=== PATIENT | male | born 1955 | race Caucasian/White ===

== ENCOUNTER 2021-10-30 13:48 | Outpatient (CLI) | payer MEDICARE, BC, SELFPAY ==
--- NOTE | 2021-10-30 14:30 | MR_ITS ---
[address] [address] Phone:?[phone] Fax:?[phone] Referring Physician Information: Devin Garsia [address] [facility] [address] Phone:?[phone] Fax:?[phone] Patient:Bill Alvarez D.O.B:?1955 Sex:?Male Phone:?[phone] [facility] MRN:?[id number] Exam Date:?10/30/2021 ? EXAM: MRI of the LEFT KNEE, without contrast CLINICAL HISTORY: Left knee pain. Evaluate for osteoarthritis, meniscal injury, stress fracture, and internal derangement. Left knee osteoarthritis. COMPARISONS: None available. TECHNICAL: MR sequences of the left knee: sagittals: PD, PDFS coronals: PD, STIR axials: PD, T2 FS CONTRAST: None SEDATION: None FINDINGS: Bones: No fracture or destructive osseous lesion is seen. Patellofemoral joint: Cartilage: There is diffuse full-thickness chondromalacia over the median patellar ridge, lateral patellar facet, and central and lateral portions of the trochlea with associated degenerative subchondral cystic changes and substantial but less marked chondromalacia over the medial patellar facet and medial portion of the trochlea. Retinacula: The medial and lateral retinacula are intact. Fat pads: The infrapatellar, quadriceps, and prefemoral fat pads are unremarkable. Knee joint: Effusion: Large left knee joint effusion and substantial synovitis. Popliteal cyst: None. Intra-articular bodies: None. Medial compartment: Medial meniscus: There is an approximately 5 mm in length complex tear of the body of the medial meniscus best seen on coronal series 8 images 15 and 16 and an approximately 5 mm in length free edge surfacing horizontal tear of the posterior horn of the medial meniscus best seen on sagittal series 6 image 10. There is approximately 3 mm of medial meniscal extrusion best seen on coronal series 8 image 18. Cartilage: There is diffuse grade III chondromalacia over most of the weightbearing portion of the medial femoral condyle. Lateral compartment: Lateral meniscus: Intact. Cartilage: Approximately 2.0 cm in AP dimension by 1.2 cm in transverse dimension area of grade III chondromalacia over the mid and posterior weightbearing portions of the lateral femoral condyle. Ligaments: Anterior cruciate ligament: Intact. Posterior cruciate ligament: Intact. Medial collateral ligament: Intact. Posterior oblique ligament: Intact. Fibular collateral ligament: Intact. Posterolateral corner: The distal biceps femoris tendon, iliotibial band, popliteus tendon, popliteus muscle, popliteofibular ligament, and arcuate ligament are intact. Posteromedial corner: There is marked semimembranosus-medial collateral ligament bursitis. The pes anserine tendons are intact. Extensor mechanism: Patellar tendon: Intact. Quadriceps tendon: Intact, without tendinopathy. There is nonspecific soft tissue swelling anterior to the patella and patellar tendon. There are moderate degenerative changes of the proximal tibiofibular joint with degenerative cystic changes within the proximal posterolateral tibia. IMPRESSION: 1. Diffuse full-thickness chondromalacia over the median patellar ridge, lateral patellar facet, and central and lateral portions of the trochlea with associated degenerative subchondral cystic changes and substantial less marked chondromalacia over the medial patellar facet and medial portion of the trochlea. 2. Diffuse grade III chondromalacia over most of the weightbearing portion of the medial femoral condyle. 3. Approximately 2.0 x 1.2 cm area of grade III chondromalacia over the mid and posterior weightbearing portions of the lateral femoral condyle. 4. Moderate proximal tibiofibular joint osteoarthritis with degenerative cystic changes within the proximal posterolateral tibia. 5. Approximately 5 mm in length complex tear of the body of the medial meniscus and an approximately 5 mm in length free edge surfacing horizontal tear of the posterior horn of the medial meniscus. Approximately 3 mm of medial meniscal extrusion. 6. Marked semimembranosus-medial collateral ligament bursitis. 7. Large left knee joint effusion and substantial synovitis. 8. No lateral meniscal tear or ligamentous injury of the left knee. RCB Electronically signed on 10/31/2021 8:50:00 AM by Darius Qiu M.D.
== END 2021-10-30 13:49 | disposition home or self-care (01) ==
LOC: MRI 13:49
PROVIDERS: PCP Family Medicine; Visit Provider Physician Assistant
DX: M25.562 Pain in left knee (principal); M17.12 Unilateral primary osteoarthritis, left knee; M22.42 Chondromalacia patellae, left knee; M25.462 Effusion, left knee
CPT/HCPCS: 73721

== ENCOUNTER 2021-11-05 12:21 | Outpatient (CLI) | payer MEDICARE, BC, SELFPAY ==
--- OUTSIDE RECORDS SUMMARY | 2021-11-05 12:23 | XMS_ITS ---
:1955 Author Care Team Providers Name Role Phone Verenice Good Primary Care Provider Unavailable Allergies Code Code System Name Reaction Severity Status Onset NKDA ? Medications Name Status Start Date Stop Date ? ? ammonium lactate 12 % topical cream Active ? Not available APPLY TO AFFECTED AREA(S) ON BODY ONCE DAILY FOR DRYNESS atorvastatin 10 mg tablet Active ? Not av ailable TAKE ONE TABLET BY MOUTH AT BEDTIME ketoconazole 2 % shampoo Active ? Not pamela ilable WASH SCALP 2-3 TIMES A WEEK. LATHER AND LET SIT 3-5 MINUTES. RI NSE OFF naproxen 500 mg tablet Active ? Not avail able TAKE ONE TABLET BY MOUTH TWICE A DAY NEEDED FOR PAIN triamcinolone acetonide 0.1 % topical ointment Active ? Not available APPLY TO LIPS 1-2 TIMES DAILY FOR 2 WEE KS AT A TIME - REPEAT NEEDED FOR FLARES Problems No Known Problems Procedures None recorded. Results Lab Results Date Name Specimen Result Interpretation Description Value Range Status Address ? 01/14/2021 SARS CoV 2 RNA, Nose (nasal ? Result positive ? ? [facility], RANDY+probe, passage) [facility] N[facility] [place]: [address] [facility] [address] , [place] Past Encounters 01/14/2021 Covid-19 Verenice Good, PA: [address] , [facility] [address], [place] [address], Ph. Social History Tobacco Smoking Status Never Smoker Vaccine List None recorded. Plan of Care Patient Instructions Discussed rapid covid results with melania ent and recommended quarantine per CDC guidelines. Patient to follow up with jade padilla for further guidelines. Patient appears well, vitals stable and no immediate con cerns. Patient understands and agrees with treatment plan and instructions. Symptom management discussed. Medication side effects discussed. Discussed risks? bene fits? alternatives? side effects of treatment. If symptoms progress or worse n, patient should proceed to the emergency room immediately. All questions answered . Reminders Provider Appointments None recorded. ? ? Lab None recorded. ? ? Referral None recorded. ? ? Procedures None recorded. ? ? Surgeries None recorded. ? ? Imaging None recorded. ? ? Vitals Blood Pressure 145/85 mm[Hg]
--- OUTSIDE RECORDS SUMMARY | 2021-11-05 12:23 | XMS_ITS | Clinical Summary ---
:1955 Author Organization [facility] [place] [address] Care Team Providers Name Role Phone Burak Hatch MD Primary Care Provider [phone] Allergies Active Allergy Reactions Severity Noted Date Comments Homeopathic Products 01/25/2009 Medications Medication Sig Dispensed Refills Start Date End Date Status multivitamin (MVI) take 1 tablet by 0 01/25/2009 Active tablet oral route once daily with food omega-3 fatty take one tab BID 0 01/25/2009 Active acids-vitamin E (FISH OIL) 1,000 mg Cap aspirin enteric coated take 1 tablet 0 01/25/2009 Active 81 mg tablet (81 mg) by oral route once daily magnesium citrate 100 Take by mouth 2 0 01/12/2013 Active mg tab times daily. tadalafil (CIALIS) 20 Take 1 tablet by 6 tablet 12 03/16/2016 Active mg tabletIndications: mouth once daily Erectile dysfunction, if needed for unspecified erectile Erectile dysfunction type Dysfunction. Take 30 minutes before sexual activity. cyanocobalamin (VITAMIN Take 1 tablet by 0 8 Active B-12) 1,000 mcg mouth once tabletIndications: daily. Routine general medical examination at a health care facility Cholecalciferol, Take 1 tablet by 0 03/23/2017 Active Vitamin D3, (VITAMIN mouth once D-3) 2,000 unit daily. tabletIndications: Routine general medical examination at a health care facility simvastatin (ZOCOR) 20 Take 1 tablet by 90 tablet 3 03/23/2017 Active mg tabletIndications: mouth once Hyperlipidemia, daily. unspecified hyperlipidemia type magnesium sulfate 100 Take 1 tablet by 0 Active mg cap mouth. multivitamin Take 1 tablet by 0 Active therapeutic (THERAGRAN; mouth. ONCOVITE) tablet [id number] Take 1 g by 0 Active oil 300-1,000 mg mouth. capsule potassium chloride Take by mouth. 0 Active (KLOR-CON 10; K-TAB) 10 mEq Controlled-Release tablet aspirin (ECOTRIN) 81 mg Take 81 mg by 0 Active enteric coated tablet mouth. naproxen (NAPROSYN) 500 TAKE 1 TABLET BY 180 tablet 0 10/29/19 19 Active mg tabletIndications: MOUTH TWICE A Arthralgia, unspecified DAY WITH MEALS. joint simvastatin (ZOCOR) 20 TAKE ONE TABLET 30 tablet 0 10/28/2018 Active mg tabletIndications: BY MOUTH EVERY Hyperlipidemia, DAY unspecified hyperlipidemia type Active Problems Problem Noted Date Major depression, single episode 01/27/2010 Hyperlipidemia 01/27/2009 Erectile dysfunction 01/27/2009 Cardiogenic Syncope/Hypervagatonia 05/23/2006 Overview: EEG negative, Echo - normal, Holter - no rmal GERD 05/23/2006 Rosacea 05/23/2006 Colon polyps Overview: repeat scope 2011 Immunizations Name Administration Dates Next Due Influenza, IIV3 (Age >=3 years) 11/28/2012, 12/21/2011, 11/24, 12/06/2009, 12/06/2008 Influenza, IIV4 11/22/2016, 11/23/2015, 11/22/2014, 11/22/2013 Td (Age >=7 Years) 12/30/1999 Tdap 03/23/2017, 05/09/2007 Family History Medical History Relation Name Comments Cancer Brother 2 skin Diabetes Brother 3 Heart Disease Brother 4 DE Heart Disease Brother 5 CHF Hypertension Daughter 2 Diabetes Father Heart Disease Father CHF Hypertension Father Cancer Maternal Grandfather lip Diabetes Maternal Grandmother Diabetes Mother Relation Name Status Comments Brother 1 Alive x4 Brother 2 Brother 3 Brother 4 Brother 5 Daughter 1 Alive x2 Daughter 2 Father Maternal Grandfather Maternal Grandmother Mother Alive Paternal Grandfather Paternal Grandmother Sister Alive x3 Social History Tobacco Use Types Packs/Day Years Used Date Former Smoker Quit: 02/22/18 71 Smokeless Tobacco: Never Used Tobacco Cessation: Counseling Given: Yes Alcohol Use Standard Drinks/Week Comments Yes 0.8 (1 standard drink = 0.6 oz pure [place] holic Drinks/day: 1 per week alcohol) Sex Assigned at Date Recorded Not on file Obstetrics History Last Filed Vital Signs Vital Sign Reading Time Taken Comments Blood Pressure 139/80 04/29/2018 9:51 AM [employer]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 Pulse 52 04/29/2018 9:51 AM 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 Temperature 37 ??C (98.6 ??F) 04/29/2018 9:51 AM 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 Respiratory Rate 14 11/15/2017 9:31 AM CDT Oxygen Saturation 98% 04/29/2018 9:51 AM 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 Inhaled Oxygen Concentration - - Weight 78.7 kg (173 lb 9.6 oz) 04/29/2018 9:51 AM SEM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 s hoes on Height 171 cm (5' 7.32) 11/15/2017 9:31 AM CDT Body Mass Index 26.93 11/15/2017 9:31 AM CDT Plan of Treatment Health Maintenance Due Date Last Done Comments COVID-19 vaccine series (#1) 03/19/1956 Zoster (shingles) series for age 0709/16/2006 50+ (1 of 2) Colonoscopy through age 75 03/08/2018 03/08/2013, 4, 11/22/2006, Additional history exists BMI (ht and wt on same day) for 11/15/2018 11/15/2017, 02/24, age 18+ 03/16/2016, Additional history exists Depression screening for age 12+ 11/18/2018 11/18/2017, , 11/15/2017, Additional history exists Pneumococcal series for age 65+ (1 2021 - PCV) Influenza for age 65+ 10/23/2021 11/22/2016, 11/23/2015, 11/22/2014, Additional history exists Lipids for age 45-75 03/23/2022 03/23/2017, 03/16/2016, 03/11/2015, Additional history exists Tetanus booster 03/23/2027 03/23/2017, 05/09/2007, 12/30/1999 Hepatitis C screening for age Completed 03/23/2017 18-79 Tdap Completed 03/23/2017, 05/09/2007 Medical Devices Implanted Type Area Supply Chain Planner Device Shelf Model / Identifier Expiration Serial / Date Lot [id number] - [id number] Right: D-ARTHREX 12/23 [id number] / Implanted: Qty: 4 on 05/02/2014 by Jamarcus Hollis MD at [facility] Shoulder / [id number] Results Not on filefrom Last 3 Months Insurance Payer Benefit Plan / Subscriber ID Effective Dates Phone Addre ss Type Group [employer] HP [id number] 2017-Presen [address] [place] [address] BLUE CROSS BLUE CROSS OF [id number] 2014-Presen [address] [facility] [place] [address] Salomon Alvarez Liam Personal/Famil Self 1955 [address] (Home) [phone] Jak CHAPIN (Work) [id number] Advance Directives Documents on File Type Date Recorded Patient [place] Explanati on Healthcare Directive 08/16/2008 12:00 AM ADVANCE DIRECTIVE Healthcare Directive 07/30/2008 HEALTHCARE DIRECTIVE, [facility] [facility] [place] [place] Latest Code Status on File Code Status Date Activated Date Inactivated Comments Full Code 05/02/2014 2:15 PM 05/02/2014 7:17 PM Full Code 05/02/2014 9:02 AM 05/02/2014 2:15 PM Full Code 02/06/2005 9:44 AM 02/07/2005 3:54 PM Care Teams Director Teen Post Relationship Specialty Start Date End Date Burak Hatch MD PCP - General 05/23/041999 [place] [address]
[2021-11-05 13:46] LABS: Basophils Absolute Auto 0.02 K/uL (0.00-0.30); Basophils Percent Auto 0.4 % (0.0-3.0); Eosinophils Absolute Auto 0.23 K/uL (0.00-0.50); Eosinophils Percent Auto 4.5 % (0.0-7.0); Hematocrit 43.5 % (37.0-53.0); Hemoglobin* 14.4 gm/dL (13.5-17.5); Immature Granulocytes Abs Auto 0.02 K/uL (0.00-0.30); Lymphocytes Absolute Auto 1.22 K/uL (0.90-2.90); Lymphocytes Percent Auto 23.7 % (20-44); Mean Corpuscular HGB Conc 33 gm/dL (32-36); Mean Corpuscular Hemoglobin 31 pg (26-34); Mean Corpuscular Volume 92 fL (80-100); Monocytes Percent Auto 9.7 % (0.0-11.0); Neutrophils Absolute Auto 3.16 K/uL (1.7-7.0); Neutrophils Percent Auto 61.3 % (42.0-72.0); Platelet Count* 242 K/uL (140-440); RDW Coefficient of Variation % 12.5 % (11.5-15.5); Red Blood Count 4.71 m/uL (4.30-5.90); White Blood Count* 5.15 K/uL (4.50-11.00)
[2021-11-05 13:51] LABS: Slide Review Reflex No
[2021-11-05 14:49] LABS: Chloride* 103 mmol/L (96-114); Potassium* 4.8 mmol/L (3.6-5.1); Sodium* 140 mmol/L (135-149)
[2021-11-05 14:52] LABS: Blood Urea Nitrogen* 28 mg/dL (7-30); Carbon Dioxide* 28 mmol/L (20-32); Creatinine* 0.8 mg/dL (0.5-1.5); Estimated Glomerular Filt Rate 98 ml/min
[2021-11-05 14:53] LABS: Calcium* 9.2 mg/dL (8.4-10.6); Glucose* 98 mg/dL (60-115)
[2021-11-05 15:42] LABS: SARS PCR* Negative SARS-CoV-2 (Negative)
== END 2021-11-05 12:22 | disposition home or self-care (01) ==
PROVIDERS: PCP Family Medicine; Visit Provider Family Medicine
DX: Z01.818 Encounter for other preprocedural examination (principal); Z20.822 Contact with and (suspected) exposure to COVID-19
CPT/HCPCS: 80048; 85025; 87635

== ENCOUNTER 2021-11-06 09:54 | Day surgery (SDC) | payer MEDICARE, BC, SELFPAY ==
[2021-11-06] VITALS (20 sets, daily range): BP systolic 90–152; BP diastolic 41–95; PULSE 40–85; RESP 12–20; TEMP 35.8–36.7; O2SAT 93–100; BMI 28.1
[2021-11-06] MEDS: ACETAMINOPHEN 500 MG TABLET 1000 MG PO (10:18)
[2021-11-06] MEDS: CELECOXIB 200 MG CAPSULE PO ×2 (10:18→21:02)
[2021-11-06] MEDS: OXYCODONE (CR) 10 MG TAB.ER.12H PO (10:18)
[2021-11-06] MEDS: SODIUM CHLORIDE 0.9 % (FLUSH) 10 ML SYRINGE IVF (10:30)
[2021-11-06] MEDS: LACTATED RINGERS 1000 ML 1,000 ML 100 ML IV ×2 (10:30→13:54)
[2021-11-06] MEDS: MIDAZOLAM HCL 1 MG/ML inj IVP (11:17)
[2021-11-06] MEDS: fentaNYL 100 MCG/2 ML inj IVP (11:18)
--- NOTE | 2021-11-06 11:19 | SUR.PREOP ---
TIME?OUT:?1117 PT/Aamir HIDALGO RN/Matthieu FLEMING MDA?VERIFICATION?OF?SURGICAL?SITE,?PROCEDURE,?AND?CONSENT OBTAINED?PRIOR?TO?INVASIVE?PROCEDURE.
--- NOTE | 2021-11-06 11:44 | W.PM.NB ---
Nerve Block Nerve Block Time Seen by Provider: 11:15 Type of block requested by surgeon for post-operative analgesia: adductor canal Side: left Time out performed: Yes Verification of patient name: Yes Verification of date of : Yes Site marking: site marked Name of person performing procedure: Fernando Continuous monitoring Was continuous monitoring of O2 sat, B/P, conditioner tumbler operator, recorded every 15 minutes?: Yes Procedure Checklist: sterile prep, needles and gloves Ultrasound guided. Images saved: Yes Medications given in 5ml increments after negative aspiration: Ropivicaine %: 0.5 mL: 20 Needle gauge: 20 Decadron (mg): 10 Precedex (mcg): 25 Patient tolerated procedure well: Yes Additional comments: Needle noted adjacent to nerve Block Charges Block Charge (with Pro Fee): Femoral Nerve Use of Ultrasound Machine for Block: Yes- US Guidance/pain block
[2021-11-06] MEDS: TRANEXAMIC ACID 100 MG/ML INJ 1000 MG IV (11:45)
[2021-11-06] MEDS: CEFAZOLIN 2 GM INJ IVP (11:45)
--- NOTE | 2021-11-06 11:45 | W.PM.NB ---
Nerve Block Nerve Block Time Seen by Provider: 11:15 Date Seen: 11/06/21 Type of block requested by surgeon for post-operative analgesia: geniculars Side: left Time out performed: Yes Verification of patient name: Yes Verification of date of : Yes Site marking: site marked Name of person performing procedure: Fernando Continuous monitoring Was continuous monitoring of O2 sat, B/P, lunchroom monitor, recorded every 15 minutes?: Yes Procedure Checklist: sterile prep, needles and gloves Medications given in 5ml increments after negative aspiration: Ropivicaine %: 0.5 mL: 9 Needle gauge: 25 Patient tolerated procedure well: Yes Block Charges Block Charge (with Pro Fee): Genicular Nerve Block Use of Ultrasound Machine for Block: No
--- NOTE | 2021-11-06 12:50 | CRLHL7_ITS ---
For Patients: As a result of the Cures Act, medical imaging exams and procedure reports are released immediately into your electronic medical record. You may view this report before your referring provider. If you have questions, please contact your health care provider. INDICATION: Postoperative total knee arthroplasty TECHNIQUE: Knee radiograph 2 views left COMPARISON: None FINDINGS: Bone: No acute fractures or aggressive bone lesions are identified. Joint: The patient is status post a total knee arthroplasty with patellar resurfacing. No significant knee effusion is seen. Soft tissue: Evaluation is limited by fabric artifacts. Anterior skin, subcutaneous gas and joint gas are present from recent surgery. No radiopaque foreign bodies are seen. IMPRESSION: 1. There is an unremarkable postoperative appearance of the knee arthroplasty. Dictated by: Walt Vargas MD @ 11/06/2021 14:24:21 (Electronically Signed)
--- NOTE | 2021-11-06 12:53 | PM.ORPRC ---
Procedure Note Date of procedure: 11/06/21 Procedure: SURGEON: Chris Montano MD TIMBER RIDER: Mignon Rutledge PA-C PREOPERATIVE DIAGNOSIS: Left knee osteoarthritis POSTOPERATIVE DIAGNOSIS: Left knee osteoarthritis NAME OF OPERATION: Left total knee arthroplasty ANESTHESIA: Spinal ESTIMATED BLOOD LOSS: 0 mL COMPLICATIONS: None SPECIMENS: None DRAINS: None PREOPERATIVE ANTIBIOTICS: Ancef 2 grams IMPLANTS: 1. J&J Attune #6 posterior stabilized femur 2. #6 fixed-bearing tibia 3. #6 posterior stabilized, 5 mm fixed-bearing polyethylene 4. 41 patella INDICATIONS: The patient is a 66-year-old male with a longstanding history of severe, unrelenting left knee pain secondary to end-stage (grade IV) left knee osteoarthritis. Despite appropriate nonoperative management, including activity modification, anti-inflammatories, gxzb-dir-ksvdejt pain medication, bracing, physical therapy, and injections they continue to have pain and disability. Operative intervention was offered. The risks, benefits and expected outcomes were discussed in detail. These included but were not limited to: Infection, bleeding, injury to blood vessel or nerve, venous thromboembolism. All questions were answered to their satisfaction. Use of an assistant department manager was necessary throughout the case for patient positioning and safety, soft tissue retraction, and closure. PROCEDURE: Spinal anesthesia was administered. The patient was placed supine on the operating table. The assistant department manager made sure the patient was positioned appropriately. The lower extremity was prepped and draped in the usual sterile fashion. The limb was exsanguinated with the Simone bandage. The pneumatic tourniquet was inflated to 300 mmHg. A standard anterior incision was made with the knee in flexion. Subcutaneous dissection was sharply taken through fascial layer #1. Full-thickness medial and lateral flaps were elevated. The assistant department manager retracted the soft tissues and protected them throughout the case. A standard medial parapatellar approach was made. The patella was everted. The infrapatellar fat pad was preserved. The menisci and cruciate ligaments were sharply d?brided. Marginal osteophytes were d?brided with the rongeur. The drill was used to penetrate the femoral canal. The canal was aspirated and irrigated with pulse lavage. The intramedullary femoral guide was placed for a 5-degree valgus cut, removing 10 mm off the distal femur. The saw was used to make the cut. Whitesides line and the trans epicondylar axis were marked. The femoral sizing guide was pinned onto the distal femur. Three degrees of external rotation nicely parallels the transepicondylar axis. Pins were placed for posterior referencing. The four-in-one cutting guide was pinned onto the distal femur. The anterior, posterior, and chamfer cuts were made. The assistant department manager protected the collateral ligaments. The box cutting guide was pinned. The box cuts were made. The boxed trial was placed and was an excellent fit. Drill holes for the lugs were made. Attention was then turned to the proximal tibia. The extramedullary tibial guide was placed for a neutral varus/valgus cut with 5 degrees of posterior slope, removing 2 mm based off the medial tibial surface. The assistant department manager protected the collateral ligaments and the neurovascular bundle. The saw was used to make the cut. Trial components were placed. The knee was nicely balanced in both flexion and extension. Rotation of the tibial component was matched to the femur in full extension, matched to our tibial cutting pins, and marked with cautery. The trial components were removed. The tray was pinned by the assistant department manager and the drill and the punch were used. The tray was removed. The punch was used again. We placed a bone plug in the femoral canal. Attention was then turned to the patella. Ruby patellar thickness was 20 mm. The lobster claw resection guide was used with the 7.5 mm oscar and a saw blade used as an extra oscar. The saw was used to make the cut. Drill holes were made by the assistant department manager. The trial was placed and was an excellent fit. Cancellous surfaces were irrigated with pulse lavage and thoroughly dried by the assistant department manager. We cemented the tibial component, then the femoral component. A trial spacer was placed. The knee was brought into full extension. We then cemented the patellar component. Excessive cement was removed. The cement was allowed to harden. We impacted the 5 mm polyethylene onto the tibial tray. The knee was taken through a range of motion and was found to be nicely balanced in both flexion and extension. The patella tracks centrally. The assistant department manager did a three minute dilute Betadine solution soak. The assistant department manager irrigated the wound with 3 liters of normal saline via pulse lavage. The assistant department manager reapproximated the extensor mechanism with #1 Vicryl in an interrupted lxhqgb-iw-mzewr fashion. The assistant department manager then ran the extensor mechanism with a #1 PDO Stratafix. The assistant department manager closed the subcutaneous tissues with a 3-0 Stratafix and the skin with a running 3-0 Stratafix in a subcuticular fashion. Glue was used to seal the skin. The assistant department manager placed a dry dressing, AUDIE stocking, and Polar Care. Sponge and needle counts were correct x2. The patient tolerated the procedure well. There were no apparent complications. They were carefully transferred to the hospital bed and taken to the postanesthesia care unit in satisfactory condition. PLAN: The patient will be mobilized with physical therapy. Aspirin will be used for DVT prophylaxis. They will be discharged to home once medically appropriate.
--- NOTE | 2021-11-06 13:44 | W.ANESCHARGE ---
Anesthesia Charges Start Date/Time Anesthesia Start Date: 11/06/21 Anesthesia Start Time: 11:24 Stop Date/Time Anesthesia Stop Date: 11/06/21 Anesthesia Stop Time: 13:40 Summary Emergency: No
--- NOTE | 2021-11-06 13:46 | W.ANESCHARGE ---
Anesthesia Charges Start Date/Time Anesthesia Start Date: 11/06/21 Anesthesia Start Time: 11:24 Stop Date/Time Anesthesia Stop Date: 11/06/21 Anesthesia Stop Time: 13:40 Summary Emergency: No
--- NOTE | 2021-11-06 15:03 | PC.NURSE ---
End of Shift Pertinent assessment: pt vital signs stable with bradycardia to mid 30's, MD aware 12 lead ekg done and pt placed on telemetry, and pain free from LTKA today. pt is A&o x4 and able to make needs known and able to converse. plan: continue to use supportive therapies and include PT/OT and education appropriate for discharge. Family: at bedside all questions answered, plan to D/c with to split level home when appropriate.
[2021-11-06 15:40] LABS: Sodium* 139 mmol/L (135-149)
[2021-11-06] MEDS: ONDANSETRON 2 MG/ML inj 4 MG IVP (18:20)
[2021-11-06] MEDS: HYDROmorphone 0.5 mg/0.5 ml inj IVP (18:43)
[2021-11-06] MEDS: CEFAZOLIN 2 GM in 0.9 % SODIUM CHLORIDE Mini-bag 100 ML IVPB (19:31)
[2021-11-06] MEDS: SENNOSIDES 1 TAB TABLET 2 TAB PO (21:02)
[2021-11-06] MEDS: ASPIRIN 81 MG TABLET EC PO (21:02)
[2021-11-06] MEDS: ATORVASTATIN 10 MG TABLET PO (21:02)
[2021-11-06] MEDS: OXYCODONE 5 MG TABLET PO (21:04)
[2021-11-06] MEDS: 0.9 % SODIUM CHLORIDE 1000 ml 1,000 ML IV (22:41)
--- NOTE | 2021-11-06 23:57 | PC.NURSE ---
[id number]: Patient pleasant and cooperative. Pain controlled with PRN Dilaudid x1 and Oxycodone x1. A1,walker,GB. At approximately 1800 patient was returning from the BR and sat on chair and stated I am dizzy and then became unresponsive. Pulse was present. Patient then vomited and regained consciousness. Tele box showed v-tach. Charge nurse Viky assisted. DR. Manning present. BP low, 1000 NS bolus ordered and administered. Zofran administered. Patient has Hx. of Brugada Syndrome which was recently diagnosed. After previously mentioned event, patient has been vitally stable with no episodes of dizziness/unconsciousness. Eating and voiding. Dressing to L.knee C/D/I. CMS intact.
[2021-11-07 00:15] VITALS: BP 128/85; PULSE 72; PULSE 83; RESP 18; TEMP 36.6; O2SAT 96
--- NOTE | 2021-11-07 00:19 | PM.IMCN1 ---
Date of Consult Patient: [facility] Patient Consult date: 11/06/21 Requesting Physician: Orthopedics Primary Care Provider: Burak Hatch MD Consult Narrative Reason for consult: Assist with postoperative cares including h/o cardiogenic syncope Narrative: Salomon Alvarez is a 66 year old man with the end-stage left knee osteoarthritis, presents for elective left total knee arthroplasty. This is undertaken successfully without any surgical complications. I reviewed the preoperative history and physical. Major concern is the recently diagnosed Brugada syndrome with history of cardiogenic syncope. He is in the process of further assessing this with the [facility]. Review of Systems Status of ROS: Reports: 10 or more systems reviewed and unremarkable except as noted in History and below and 6 or more systems reviewed and unremarkable except as noted in History and below Narrative: When I initially see him he is feeling well and doing well. Denies any concerns. Later in the evening patient has a vasovagal episode when he stands to transfer to the bedside recliner. This subsides fairly quickly. Denies any chest heaviness, pressure, tightness, or pain. Denies nausea or vomiting. Denies palpitations or fluttering. Denies cough, dyspnea. Bowel and bladder function are satisfactory. No focal motor neurologic deficits. PFSH PFS Medical History Actinic keratosis Basal cell carcinoma of nose Brugada syndrome Chronic headache Elevated liver enzymes Erectile dysfunction GERD (gastroesophageal reflux disease) History of colon polyps History of renal calculi Hyperlipidemia Joint pain Osteoarthritis of right knee Rosacea Syncope, cardiogenic Surgical History H/O repair of rotator cuff History of appendectomy History of discectomy History of facial surgery History of inguinal hernia repair Family History Brother DM (diabetes mellitus), type 2 Brugada syndrome Myocardial infarction Father DM (diabetes mellitus), type 2 Mother DM (diabetes mellitus), type 2 Brugada syndrome High blood pressure Social History Smoking Status: Former smoker Do you use any of these nicotine containing products: None How often do you have a drink containing alcohol: 2-4 times a month Alcohol type: wine and hard liquor How many standard drinks containing alcohol do you have on a typical day: 1 or 2 How often do you have six or more drinks on one occasion: Never AUDIT-C Alcohol total score: 2 Non-prescribed substance use: denies use Caffeine: No service: No Meds Home Medications and Allergies Home Medications Medication Instructions Recorded Confirmed Type aspirin 81 mg tablet,delayed 81 mg PO QDAY 10/22/21 11/06/21 History release atorvastatin 10 mg tablet 10 mg PO HS 10/22/21 11/06/21 History celecoxib 200 mg capsule (Celebrex) 200 mg PO BID 10/22/21 11/06/21 History cholecalciferol (vitamin D3) 10 10 mcg PO QDAY 10/22/21 11/06/21 History mcg (400 unit) capsule naproxen 500 mg tablet 500 mg PO BID PRN 10/22/21 11/06/21 History magnesium oxide 400 mg (241.3 mg 400 mg PO DAILY 11/04/21 11/06/21 History magnesium) tablet omega-3 fatty acids 1,000 mg 1,000 mg PO QDAY 11/04/21 11/06/21 History capsule Allergies Allergy/AdvReac Type Severity Reaction Status Date / Time simvastatin Allergy muscle Verified 11/06/21 10:08 aches Exam Narrative: Exam Narrative: When I 1st see him he is awake, alert, oriented to self, place, time, situation. Articulate, cooperative. Friendly, insightful. Mood and affect are congruent. Hearing and vision are grossly normal. Dry buccal mucosa. No icterus or conjunctival injection. Neck is supple. Lungs are clear to auscultation. No CVA tenderness. Heart tones with regular rhythm, bradycardic. Normal S1-S2. Abdomen with active bowel sounds, soft, nontender. Extremities without edema. Moves all 4 extremities. Skin grossly intact save the incision site which I do not examine because it is covered with a dressing. Const: Vital Signs, click to edit/add: Vital Signs - 24 hr 11/06/21 10:32 11/06/21 11:17 11/06/21 11:20 Temperature 98.1 F Pulse Rate 54 L 52 L 54 L Pulse Rate [Pulse Oximeter] Respiratory Rate 16 16 16 Blood Pressure 145/88 H 152/78 H 136/89 Blood Pressure [Le ft Arm] Pulse Oximetry 98 99 98 Oxygen Delivery Me thod Room Air Nasal Cannula Nasal Cannula Oxygen Flow Rate 2 2 11/06/21 13:35 11/06/21 13:40 11/06/21 13:45 Temperature 97.4 F L Pulse Rate 47 L 50 L 50 L Pulse Rate [Pulse Oximeter] Respiratory Rate 12 12 12 Blood Pressure 90/58 L 100/65 103/66 Blood Pressure [Le ft Arm] Pulse Oximetry 94 94 94 Oxygen Delivery Me thod Room Air Room Air Room Air Oxygen Flow Rate 11/06/21 13:50 11/06/21 13:55 11/06/21 14:12 Temperature 97.4 F L 96.5 F L Pulse Rate 51 L 46 L 40 L Pulse Rate [Pulse Oximeter] Respiratory Rate 12 16 12 Blood Pressure 106/64 111/66 Blood Pressure [Le ft Arm] 120/72 Pulse Oximetry 94 94 Oxygen Delivery Me thod Room Air Room Air Room Air Oxygen Flow Rate 2 11/06/21 14:15 11/06/21 14:10 11/06/21 15:06 Temperature 96.5 F L 96.5 F L Pulse Rate Pulse Rate [Pulse Oximeter] 40 L 47 L Respiratory Rate 12 12 12 Blood Pressure Blood Pressure [Le ft Arm] 123/71 120/72 122/73 Pulse Oximetry 98 94 93 Oxygen Delivery Me thod Room Air Room Air Room Air Oxygen Flow Rate 2 2 11/06/21 14:45 11/06/21 14:10 11/06/21 15:00 Temperature 96.5 F L Pulse Rate Pulse Rate [Pulse Oximeter] 40 L 47 L 40 L Respiratory Rate 12 12 14 Blood Pressure Blood Pressure [Le ft Arm] 120/72 122/73 130/84 Pulse Oximetry 100 93 95 Oxygen Delivery Me thod Room Air Room Air Room Air Oxygen Flow Rate 2 11/06/21 15:00 11/06/21 15:00 11/06/21 15:30 Temperature 96.9 F L Pulse Rate 45 L Pulse Rate [Pulse Oximeter] 47 L 46 L Respiratory Rate 14 Blood Pressure Blood Pressure [Le ft Arm] 121/95 H Pulse Oximetry 98 Oxygen Delivery Me thod Room Air Oxygen Flow Rate 11/06/21 16:00 11/06/21 17:00 11/06/21 18:00 Temperature 96.5 F L 97.2 F L 96.5 F L Pulse Rate Pulse Rate [Pulse Oximeter] 47 L 73 72 Respiratory Rate 16 16 20 Blood Pressure Blood Pressure [Le ft Arm] 142/78 H 134/81 90/76 Pulse Oximetry 93 96 95 Oxygen Delivery Me thod Room Air Room Air Room Air Oxygen Flow Rate 11/06/21 19:00 11/06/21 20:00 Temperature 98.1 F 97.9 F Pulse Rate Pulse Rate [Pulse Oximeter] 70 85 Respiratory Rate 16 16 Blood Pressure Blood Pressure [Le ft Arm] 129/41 L 114/72 Pulse Oximetry 94 93 Oxygen Delivery Me thod Room Air Room Air Oxygen Flow Rate Labs Labs: BMP 11/06/21 15:14 Sodium 139 Assessment and Plan Assessment and plan (1) Patellofemoral arthritis of left knee: Problem comment: End-stage patellofemoral OA Status: Acute (2) Status post total left knee replacement: Status: Acute (3) Vasovagal syncope: Status: Acute (4) Sinus bradycardia: Problem comment: Postoperatively Status: Acute Plan 1. Reviewed my impression with the patient and . 2. They know very little about Brugada syndrome. I gave them information about this. Answered their questions. 3. Increase IV fluids status post vasovagal syncopal episode. 4. Agree with postoperative venous thromboembolism prophylaxis. 5. Agree with perioperative antibiotic prophylaxis. 6. Patient has sinus bradycardia with nonspecific findings on electrocardiogram. Will continue to monitor on telemetry while in hospital. 7. Continue with other supportive efforts.
[2021-11-07] MEDS: ACETAMINOPHEN 500 MG TABLET 1000 MG PO ×3 (00:26→12:24)
[2021-11-07] MEDS: CEFAZOLIN 2 GM in 0.9 % SODIUM CHLORIDE Mini-bag 100 ML IVPB ×2 (02:20→09:47)
[2021-11-07 04:00] VITALS: BP 138/82; RESP 18; TEMP 36.6; O2SAT 96
[2021-11-07] MEDS: OXYCODONE 5 MG TABLET PO ×2 (06:20→12:24)
[2021-11-07 06:58] LABS: Hematocrit 41.1 % (37.0-53.0); Hemoglobin* 13.5 gm/dL (13.5-17.5); Immature Granulocytes Abs Auto 0.02 K/uL (0.00-0.30); Lymphocytes Percent Auto 8.2 % (20-44); Mean Corpuscular HGB Conc 33 gm/dL (32-36); Mean Corpuscular Hemoglobin 31 pg (26-34); Mean Corpuscular Volume 93 fL (80-100); Monocytes Percent Auto 6.4 % (0.0-11.0); Neutrophils Percent Auto 85.1 % (42.0-72.0); Platelet Count* 201 K/uL (140-440); RDW Coefficient of Variation % 12.8 % (11.5-15.5); Red Blood Count 4.41 m/uL (4.30-5.90); White Blood Count* 7.55 K/uL (4.50-11.00)
--- NOTE | 2021-11-07 07:01 | PC.NURSE ---
Shift note : Pt up to chair w/ A1 and walker, moving well. Rating pain to L knee 4/10 receiving only scheduled Tylenol and ice to op site, Oxycodone given this am in preparation for increased am activity. Drsg to L knee CDI, CMS intct. Tele reads SR w/ 1st degree AVB and BBB, no further V-tach episodes. Plans to DC home w/ today.
[2021-11-07 07:11] LABS: Potassium* 4.9 mmol/L (3.6-5.1)
[2021-11-07 07:14] LABS: Blood Urea Nitrogen* 21 mg/dL (7-30); Creatinine* 0.9 mg/dL (0.5-1.5); Est. Creatinine Clearance* 68.85; Estimated Glomerular Filt Rate 95 ml/min
[2021-11-07 07:27] LABS: Slide Review Reflex No
[2021-11-07 07:43] VITALS: PULSE 65
[2021-11-07 07:48] LABS: INR 1.06 (0.91-1.10); Prothrombin Time 14.2 Seconds
[2021-11-07 08:01] VITALS: BP 131/69; PULSE 64; RESP 16; TEMP 36.8; O2SAT 99
--- NOTE | 2021-11-07 08:33 | P.ORPN_ITS ---
Subjective Subjective Time Seen by Provider: 07:15 Date Seen: 11/07/21 Principal diagnosis: Post left total knee arthroplasty Interval history: Salomon is comfortable this morning resting in bed. He feels he got about 2 hours of sleep last night. He is looking forward to going home today. Ortho Exam Narrative Exam Narrative: Alert and oriented x3. Patient is in no acute distress. Converses without labored breathing. Hearing is grossly intact. Examination of the left lower extremity shows dressing is clean, dry, and intact. Soft tissue hematoma is present and mild. Mild effusion. No erythema or ecchymosis. CMS intact left lower extremity. Bilateral calves are soft and nontender. Good quad strength 5/5. Const Vital Signs, click to edit/add: Vital Signs - 24 hr 11/06/21 10:32 11/06/21 11:17 11/06/21 11:20 Temperature 98.1 F Pulse Rate 54 L 52 L 54 L Pulse Rate [Left Dorsalis Pedis] Pulse Rate [Pulse Oximeter] Respiratory Rate 16 16 16 Blood Pressure 145/88 H 152/78 H 136/89 Blood Pressure [Left Arm] Pulse Oximetry 98 99 98 Oxygen Delivery Method Room Air Nasal Cannula Nasal Cannula Oxygen Flow Rate 2 2 11/06/21 13:35 11/06/21 13:40 11/06/21 13:45 Temperature 97.4 F L Pulse Rate 47 L 50 L 50 L Pulse Rate [Left Dorsalis Pedis] Pulse Rate [Pulse Oximeter] Respiratory Rate 12 12 12 Blood Pressure 90/58 L 100/65 103/66 Blood Pressure [Left Arm] Pulse Oximetry 94 94 94 Oxygen Delivery Method Room Air Room Air Room Air Oxygen Flow Rate 11/06/21 13:50 11/06/21 13:55 11/06/21 14:12 Temperature 97.4 F L 96.5 F L Pulse Rate 51 L 46 L 40 L Pulse Rate [Left Dorsalis Pedis] Pulse Rate [Pulse Oximeter] Respiratory Rate 12 16 12 Blood Pressure 106/64 111/66 Blood Pressure [Left Arm] 120/72 Pulse Oximetry 94 94 Oxygen Delivery Method Room Air Room Air Room Air Oxygen Flow Rate 2 11/06/21 14:15 11/06/21 14:10 11/06/21 15:06 Temperature 96.5 F L 96.5 F L Pulse Rate Pulse Rate [Left Dorsalis Pedis] Pulse Rate [Pulse Oximeter] 40 L 47 L Respiratory Rate 12 12 12 Blood Pressure Blood Pressure [Left Arm] 123/71 120/72 122/73 Pulse Oximetry 98 94 93 Oxygen Delivery Method Room Air Room Air Room Air Oxygen Flow Rate 2 2 11/06/21 14:45 11/06/21 14:10 11/06/21 15:00 Temperature 96.5 F L Pulse Rate Pulse Rate [Left Dorsalis Pedis] Pulse Rate [Pulse Oximeter] 40 L 47 L 40 L Respiratory Rate 12 12 14 Blood Pressure Blood Pressure [Left Arm] 120/72 122/73 130/84 Pulse Oximetry 100 93 95 Oxygen Delivery Method Room Air Room Air Room Air Oxygen Flow Rate 2 11/06/21 15:00 11/06/21 15:00 11/06/21 15:30 Temperature 96.9 F L Pulse Rate 45 L Pulse Rate [Left Dorsalis Pedis] Pulse Rate [Pulse Oximeter] 47 L 46 L Respiratory Rate 14 Blood Pressure Blood Pressure [Left Arm] 121/95 H Pulse Oximetry 98 Oxygen Delivery Method Room Air Oxygen Flow Rate 11/06/21 16:00 11/06/21 17:00 11/06/21 18:00 Temperature 96.5 F L 97.2 F L 96.5 F L Pulse Rate Pulse Rate [Left Dorsalis Pedis] Pulse Rate [Pulse Oximeter] 47 L 73 72 Respiratory Rate 16 16 20 Blood Pressure Blood Pressure [Left Arm] 142/78 H 134/81 90/76 Pulse Oximetry 93 96 95 Oxygen Delivery Method Room Air Room Air Room Air Oxygen Flow Rate 11/06/21 19:00 11/06/21 20:00 11/07/21 00:15 Temperature 98.1 F 97.9 F Pulse Rate 83 Pulse Rate [Left Dorsalis Pedis] Pulse Rate [Pulse Oximeter] 70 85 Respiratory Rate 16 16 Blood Pressure Blood Pressure [Left Arm] 129/41 L 114/72 Pulse Oximetry 94 93 Oxygen Delivery Method Room Air Room Air Oxygen Flow Rate 11/07/21 00:15 11/07/21 00:15 11/07/21 04:00 Temperature 97.8 F 97.8 F Pulse Rate Pulse Rate [Left Dorsalis Pedis] Pulse Rate [Pulse Oximeter] 72 Respiratory Rate 18 18 18 Blood Pressure Blood Pressure [Left Arm] 128/85 138/82 Pulse Oximetry 96 96 Oxygen Delivery Method Room Air Room Air Oxygen Flow Rate 11/07/21 07:43 11/07/21 08:01 Temperature 98.2 F Pulse Rate 65 Pulse Rate [Left Dorsalis Pedis] 64 Pulse Rate [Pulse Oximeter] Respiratory Rate 16 Blood Pressure Blood Pressure [Left Arm] 131/69 Pulse Oximetry 99 Oxygen Delivery Method Room Air Oxygen Flow Rate Documenting provider has reviewed patient's vital signs: yes Assessment and Plan Assessment and plan (1) Patellofemoral arthritis of left knee: Problem details: End-stage patellofemoral OA Status: Acute (2) Status post total left knee replacement: Problem details: Date of surgery 11/06/2021 Status: Acute Assessment and Plan: Plan for discharge is today to home if they meet discharge criteria. DVT prophylaxis includes aspirin 81 mg twice daily x1 month, Simon stockings x1 month may remove for 1 hr per day, frequent ambulation Remove dressing in 1 week. Observe wound and phone Orthopedics with any questions or concerns Return to clinic in 1 week for a wound check Return to clinic in [address] Montano Minimize narcotic use. Wean off and discontinue soon as possible. Salomon has taken oxycodone and hydrocodone in the past without problem. He has an appointment scheduled in November at [facility] for his Brugada syndrome Activities as tolerated. No strenuous activity. Outpatient physical therapy as scheduled. Ice and elevate the operative extremity. No restriction on ice. (3) Vasovagal syncope: Status: Acute (4) Sinus bradycardia: Problem details: Postoperatively Status: Acute
[2021-11-07] MEDS: SENNOSIDES 1 TAB TABLET 2 TAB PO (08:46)
[2021-11-07] MEDS: ASPIRIN 81 MG TABLET EC PO (08:46)
[2021-11-07] MEDS: CELECOXIB 200 MG CAPSULE PO (08:46)
[2021-11-07] MEDS: MAGNESIUM OXIDE 400 MG TABLET PO (08:46)
[2021-11-07 12:20] VITALS: BP 111/66; PULSE 65; RESP 16; TEMP 36.8
--- NOTE | 2021-11-07 12:40 | PC.NURSE ---
Discharge: SBA with walker and gait belt. Pain well controlled with medication and cryocuff. Vitals stable and WNL. Dressing over knee dry and intact. Discharged from unit @ 1235 via wheelchair, picked up to bring home.
== END 2021-11-07 12:35 | disposition home or self-care (01) ==
LOC: OR 10:02 → MEDSURG 10:03
PROVIDERS: PCP Family Medicine; Visit Provider Orthopaedic Surgery
PROC: (CPT 27447; principal; 2021-11-06 11:30)
DX: M17.12 Unilateral primary osteoarthritis, left knee (principal); I49.8 Other specified cardiac arrhythmias; R00.1 Bradycardia, unspecified; R55 Syncope and collapse
CPT/HCPCS: 27447; 1402; 36415; 64447; 64454; 73560; 76942; 82565; 84132; 84295; 84520; 85025; 85610; 93005; 97110; 97116; 97161; 97165; 97530; A9270; C1776; J0690; J1100; J1170; J2250; J2405; J2704; J2795; J3010; J7030; J7120

== ENCOUNTER 2022-03-09 09:10 | Outpatient (CLI) | payer MEDICARE, BC, SELFPAY ==
[2022-03-09 13:37] LABS: Chloride* 105 mmol/L (96-114)
[2022-03-09 13:38] LABS: Potassium* 4.5 mmol/L (3.6-5.1); Sodium* 140 mmol/L (135-149)
[2022-03-09 13:40] LABS: Cholesterol* 181 mg/dL (90-199)
[2022-03-09 13:41] LABS: Alanine Aminotransferase* 46 U/L (4-50); Blood Urea Nitrogen* 33 mg/dL (7-30); Carbon Dioxide* 28 mmol/L (20-32); Estimated Glomerular Filt Rate 84 ml/min; Glucose* 90 mg/dL (60-115); Triglycerides* 85 mg/dL (40-149)
[2022-03-09 13:42] LABS: Calcium* 9.2 mg/dL (8.4-10.6); HDL Cholesterol* 49 mg/dL (>=40); LDL Cholesterol Calculated 115 mg/dL (<100)
[2022-03-09 14:14] LABS: PSA Screen* 2.92 ng/mL (0.10-4.00)
== END 2022-03-09 09:11 | disposition home or self-care (01) ==
PROVIDERS: PCP Family Medicine; Visit Provider Family Medicine
DX: Z01.818 Encounter for other preprocedural examination (principal); E78.5 Hyperlipidemia, unspecified; Z12.5 Encounter for screening for malignant neoplasm of prostate
CPT/HCPCS: 80048; 80061; 84153; 84460

== ENCOUNTER 2022-03-16 08:29 | Outpatient (CLI) | payer MEDICARE, BC, SELFPAY ==
[2022-03-16 20:46] LABS: SARS PCR* Negative SARS-CoV-2 (Negative)
== END 2022-03-16 08:30 | disposition home or self-care (01) ==
PROVIDERS: PCP Family Medicine; Visit Provider Family Medicine
DX: Z01.818 Encounter for other preprocedural examination (principal); Z20.822 Contact with and (suspected) exposure to COVID-19
CPT/HCPCS: 87635

== ENCOUNTER 2022-03-17 09:59 | Day surgery (SDC) | payer MEDICARE, BC, SELFPAY ==
[2022-03-10 19:00] VITALS: BP 142/80; PULSE 55; RESP 18; TEMP 36.4; O2SAT 97
[2022-03-17] VITALS (31 sets, daily range): BP systolic 90–182; BP diastolic 52–102; PULSE 43–85; RESP 16–20; TEMP 35.8–36.8; O2SAT 90–100; BMI 28.1
--- NOTE | 2022-03-17 | CRLHL7_ITS ---
For Patients: As a result of the Century Cures Act, medical imaging exams and procedure reports are released immediately into your electronic medical record. You may view this report before your referring provider. If you have questions, please contact your health care provider. INDICATION: HYPOXIA TECHNIQUE: Chest 1 view. COMPARISON: None. FINDINGS: Cardiovascular and mediastinum: Heart size and vasculature are normal in caliber and appearance. Mediastinum is within normal limits. Lungs and pleural space: Lungs are clear. No sign of infiltrate or mass. No sign of pleural effusion. No pneumothorax. Bones and soft tissues: No significant findings. IMPRESSION: Unremarkable chest. Dictated by: Burak Campa MD @ 03/17/2022 18:10:33 (Electronically Signed)
[2022-03-17] MEDS: CELECOXIB 200 MG CAPSULE PO ×2 (10:42→21:42)
[2022-03-17] MEDS: ACETAMINOPHEN 500 MG TABLET 1000 MG PO ×3 (10:42→23:38)
[2022-03-17] MEDS: OXYCODONE (CR) 10 MG TAB.ER.12H PO (10:43)
[2022-03-17] MEDS: SODIUM CHLORIDE 0.9 % (FLUSH) 10 ML SYRINGE IVF (10:55)
[2022-03-17] MEDS: LACTATED RINGERS 1000 ML 1,000 ML 100 ML IV ×2 (10:55→13:05)
--- NOTE | 2022-03-17 11:16 | SUR.PREOP ---
TIME?OUT:?1121 PT/RN/MDA?VERIFICATION?OF?SURGICAL?SITE,?PROCEDURE,?AND?CONSENT OBTAINED?PRIOR?TO?INVASIVE?PROCEDURE.
[2022-03-17] MEDS: MIDAZOLAM HCL 1 MG/ML inj IVP (11:21)
[2022-03-17] MEDS: fentaNYL 100 MCG/2 ML inj IVP (11:21)
[2022-03-17] MEDS: TRANEXAMIC ACID 100 MG/ML INJ 1000 MG IV (11:40)
[2022-03-17] MEDS: CEFAZOLIN 2 GM INJ IVP (11:43)
--- NOTE | 2022-03-17 11:57 | W.ANESCHARGE ---
Anesthesia Charges Start Date/Time Anesthesia Start Date: 03/17/22 Anesthesia Start Time: 11:34 Stop Date/Time Anesthesia Stop Date: 03/17/22 Anesthesia Stop Time: 13:58 Summary Emergency: No
--- NOTE | 2022-03-17 11:58 | W.PM.NB ---
Nerve Block Nerve Block Time Seen by Provider: : Date Seen: 03/17/22 Type of block requested by surgeon for post-operative analgesia: adductor canal Side: right Time out performed: Yes Verification of patient name: Yes Verification of date of : Yes Site marking: site marked Name of person performing procedure: Fernando Continuous monitoring Was continuous monitoring of O2 sat, B/P, cardiac care unit nurse, recorded every 15 minutes?: Yes Procedure Checklist: sterile prep, needles and gloves Ultrasound guided. Images saved: Yes Medications given in 5ml increments after negative aspiration: Ropivicaine %: 0.5 mL: 20 Needle gauge: 20 Decadron (mg): 10 Precedex (mcg): 25 Patient tolerated procedure well: Yes Additional comments: Needle noted adjacent to nerve Block Charges Block Charge (with Pro Fee): Femoral Nerve Use of Ultrasound Machine for Block: Yes- US Guidance/pain block
--- NOTE | 2022-03-17 11:58 | W.PM.NB ---
Nerve Block Nerve Block Time Seen by Provider: : Date Seen: 03/17/22 Type of block requested by surgeon for post-operative analgesia: geniculars Side: right Time out performed: Yes Verification of patient name: Yes Verification of date of : Yes Site marking: site marked Name of person performing procedure: Fernando Continuous monitoring Was continuous monitoring of O2 sat, B/P, patient monitor, recorded every 15 minutes?: Yes Procedure Checklist: sterile prep, needles and gloves Medications given in 5ml increments after negative aspiration: Ropivicaine %: 0.5 mL: 9 Needle gauge: 25 Patient tolerated procedure well: Yes Block Charges Block Charge (with Pro Fee): Genicular Nerve Block Use of Ultrasound Machine for Block: No
--- NOTE | 2022-03-17 13:02 | CRLHL7_ITS ---
For Patients: As a result of the Cures Act, medical imaging exams and procedure reports are released immediately into your electronic medical record. You may view this report before your referring provider. If you have questions, please contact your health care provider. INDICATION: Right knee arthroplasty. TECHNIQUE: Two postoperative images of the right knee. FINDINGS: Right total knee arthroplasty. Patellar resurfacing. The components are adequately aligned and well seated. Air within the soft tissues and joint space related to the surgery. IMPRESSION: Right total knee arthroplasty. The components are adequately aligned and well seated. Dictated by Wes Cervantes MD @ 03/17/2022 2:41:40 PM (Electronically Signed)
--- NOTE | 2022-03-17 13:04 | P.ORPRC_ITS ---
Procedure Note Date of procedure: 03/17/22 Procedure: PREOPERATIVE DIAGNOSIS: Right knee osteoarthritis POSTOPERATIVE DIAGNOSIS: Right knee osteoarthritis NAME OF OPERATION: Right total knee arthroplasty SURGEON: Chris Montano MD SCREEN PRINTING MACHINE OPERATOR HELPER: Mignon Rutledge PA-C ANESTHESIA: Spinal ESTIMATED BLOOD LOSS: 0 mL COMPLICATIONS: None SPECIMENS: None DRAINS: None PREOPERATIVE ANTIBIOTICS: Ancef 2 grams IMPLANTS: 1. J&J Attune #6 posterior stabilized femur 2. #6 fixed-bearing tibia 3. #6 posterior stabilized, 5 mm fixed-bearing polyethylene 4. 41 patella INDICATIONS: The patient is a 66-year-old with a longstanding history of severe, unrelenting right knee pain secondary to end-stage (grade IV) right knee osteoarthritis. Despite appropriate nonoperative management, including activity modification, anti-inflammatories, [id number] pain medication, bracing, physical therapy, and injections they continue to have pain and disability. Operative intervention was offered. The risks, benefits and expected outcomes were discussed in detail. These included but were not limited to: Infection, bleeding, injury to blood vessel or nerve, venous thromboembolism. All questions were answered to their satisfaction. Use of an assistant warehouse manager was necessary throughout the case for patient positioning and safety, soft tissue retraction, and closure. PROCEDURE: Spinal anesthesia was administered. The patient was placed supine on the operating table. The assistant warehouse manager made sure the patient was positioned appropriately. The lower extremity was prepped and draped in the usual sterile fashion. The limb was exsanguinated with the Simone bandage. The pneumatic tourniquet was inflated to 300 mmHg. A standard anterior incision was made with the knee in flexion. Subcutaneous dissection was sharply taken through fascial layer #1. Full-thickness medial and lateral flaps were elevated. The assistant warehouse manager retracted the soft tissues and protected them throughout the case. A standard medial parapatellar approach was made. The patella was everted. The infrapatellar fat pad was preserved. The menisci and cruciate ligaments were sharply d?brided. Marginal osteophytes were d?brided with the rongeur. The drill was used to penetrate the femoral canal. The canal was aspirated and irrigated with pulse lavage. The intramedullary femoral guide was placed for a 5-degree valgus cut, removing 10 mm off the distal femur. The saw was used to make the cut. Whitesides line and the trans epicondylar axis were marked. The femoral sizing guide was pinned onto the distal femur. Three degrees of external rotation nicely parallels the transepicondylar axis. Pins were placed for posterior referencing. The four-in-one cutting guide was pinned onto the distal femur. The anterior, posterior, and chamfer cuts were made. The assistant warehouse manager protected the collateral ligaments. The box cutting guide was pinned. The box cuts were made. The boxed trial was placed and was an excellent fit. Drill holes for the lugs were made. Attention was then turned to the proximal tibia. The extramedullary tibial guide was placed for a neutral varus/valgus cut with 5 degrees of posterior slope, removing 2 mm based off the medial tibial surface. The assistant warehouse manager protected the collateral ligaments and the neurovascular bundle. The saw was used to make the cut. Trial components were placed. The knee was nicely balanced in both flexion and extension. The trial components were removed. The tray was placed in appropriate rotation, parallel to our tibial cutting pins. It was pinned by the assistant warehouse manager and the drill and the punch were used. The tray was removed. The punch was used again. We placed a bone plug in the femoral canal. Attention was then turned to the patella. [place] patellar thickness was 19 mm. The lobster claw resection guide was used with the 7.5 mm oscar plus the extra saw blade. The saw was used to make the cut. Drill holes were made by the assistant warehouse manager. The trial was placed and was an excellent fit. Cancellous surfaces were irrigated with pulse lavage and thoroughly dried by the assistant warehouse manager. We cemented the tibial component, then the femoral component. We impacted the 5 mm polyethylene onto the tibial tray. The knee was brought into full extension. We then cemented the patellar component. Excessive cement was removed. The cement was allowed to harden. The knee was taken through a range of motion and was found to be nicely balanced in both flexion and extension. The patella tracks centrally. The assistant warehouse manager did a three minute dilute Betadine solution soak. The assistant warehouse manager irrigated the wound with 3 liters of normal saline via pulse lavage. The ass istant reapproximated the extensor mechanism with #1 Vicryl in an interrupted [id number] fashion. The assistant warehouse manager then ran the extensor mechanism with a #1 PDO Stratafix. The assistant warehouse manager closed the subcutaneous tissues with a 3-0 Stratafix and the skin with a running 3-0 Stratafix in a subcuticular fashion. Glue was used to seal the skin. The assistant warehouse manager placed a dry dressing, AUDIE stocking, and Polar Care. Sponge and needle counts were correct x2. The patient tolerated the procedure well. There were no apparent complications. They were carefully transferred to the hospital bed and taken to the postanesthesia care unit in satisfactory condition. PLAN: The patient will be mobilized with physical therapy. Aspirin will be used for DVT prophylaxis. They will be discharged to home once medically appropriate.
--- NOTE | 2022-03-17 14:00 | W.ANESCHARGE ---
Anesthesia Charges Start Date/Time Anesthesia Start Date: 03/17/22 Anesthesia Start Time: 11:34 Stop Date/Time Anesthesia Stop Date: 03/17/22 Anesthesia Stop Time: 13:58 Summary Emergency: No
--- NOTE | 2022-03-17 17:13 | PM.IMCN1 ---
Date of Consult Patient: [facility] Patient Consult date: 03/17/22 Requesting Physician: Orthopedics Primary Care Provider: Buark Hatch MD Consult Narrative Reason for consult: h/o Brugada pattern Narrative: Salomon lAvarez is a 66 year old male with h/o Brugada pattern underwent an uneventful RTKA today by Dr. Montano. He is doing well postoperatively and has no complaints. Pain control is adequate. He was diagnosed with Brugada syndrome because his cousin had it and it was suggested that the whole family get checked out. As far as he knows he has never had any symptoms. When he was younger he had several episodes where he passed out, but he has been told that that was not related to this. He had bradycardia and what was thought to be vasovagal syncope after his LTKA last fall. Denies any chest pain or shortness of breath. Review of Systems Status of ROS: Reports: 6 or more systems reviewed and unremarkable except as noted in History and below [facility] Medical History (Updated 03/17/22 @ 21:08 by Caroline Amaro MD) Actinic keratosis Basal cell carcinoma of nose Brugada syndrome Contact dermatitis Erectile dysfunction GERD (gastroesophageal reflux disease) History of colon polyps History of renal calculi Hyperlipidemia Osteoarthritis of right knee Rosacea Syncope, cardiogenic Vasovagal syncope Surgical History (Updated 03/17/22 @ 21:07 by Caroline Amaro MD) H/O repair of rotator cuff History of appendectomy History of discectomy History of facial surgery History of inguinal hernia repair S/P trigger finger release Status post total left knee replacement (11/06/21) Family History Brother DM (diabetes mellitus), type 2 Brugada syndrome Myocardial infarction Father DM (diabetes mellitus), type 2 Mother DM (diabetes mellitus), type 2 Brugada syndrome High blood pressure Social History Highest level of school completed/degree received: 12th grade, no diploma Smoking Status: Never smoker How often do you have a drink containing alcohol: 2-4 times a month Alcohol type: wine and hard liquor How many standard drinks containing alcohol do you have on a typical day: 1 or 2 How often do you have six or more drinks on one occasion: Never AUDIT-C Alcohol total score: 2 Non-prescribed substance use: denies use Caffeine: Yes (energy drink) Little interest or pleasure in doing things: not at all Feeling down, depressed, or hopeless: not at all service: No Meds Home Medications and Allergies Home Medications Medication Instructions Recorded Confirmed Type cholecalciferol (vitamin D3) 10 10 mcg PO QDAY 10/22/21 03/17/22 History mcg (400 unit) capsule magnesium oxide 400 mg (241.3 mg 400 mg PO DAILY 11/04/21 03/17/22 History magnesium) tablet omega-3 fatty acids 1,000 mg 1,000 mg PO QDAY 11/04/21 03/17/22 History capsule zinc sulfate 50 mg zinc (220 mg) 50 mg PO QDAY 03/09/22 03/17/22 History tablet Home Medication Comments: Atorvastatin Allergies Allergy/AdvReac Type Severity Reaction Status Date / Time simvastatin Allergy muscle Verified 03/17/22 10:22 aches chlorhexidine AdvReac Severe Blister Verified 03/17/22 10:22 glue Allergy Rash Uncoded 03/10/22 13:29 Exam Narrative: Exam Narrative: General: No acute distress. Awake alert oriented x3. HEENT: Normocephalic atraumatic, pupils equally round and reactive to light and accommodation. Oropharynx clear. Mucous membranes are moist. No cervical lymphadenopathy, thyromegaly or carotid bruits. No JVD. Cardiovascular: Mildly bradycardic, regular rhythm. No murmurs, gallops, or rubs. Chest: No increased work of breathing. Clear to auscultation bilaterally. No crackles or wheezes. Abdomen: Bowel sounds present. Soft, nondistended, nontender. No hepatosplenomegaly or masses. Extremities: Right knee bandage is clean, dry, and intact. No edema, no cyanosis or clubbing. Skin: No jaundice, no pallor, no rashes. Const: Vital Signs, click to edit/add: Vital Signs - 24 hr 03/17/22 10:35 03/17/22 11:15 03/17/22 11:20 Temperature 98.3 F Pulse Rate 65 53 L 60 Respiratory Rate 18 18 18 Blood Pressure 149/102 H 182/100 H 158/88 H Blood Pressure [Ri ght Arm] Pulse Oximetry 95 99 99 Oxygen Delivery Me thod Room Air Nasal Cannula Nasal Cannula Oxygen Flow Rate 2 2 03/17/22 11:25 03/17/22 13:55 03/17/22 14:00 Temperature 97.7 F Pulse Rate 56 L 54 L 55 L Respiratory Rate 16 16 16 Blood Pressure 142/85 H 90/57 L 91/64 Blood Pressure [Ri ght Arm] Pulse Oximetry 97 90 90 Oxygen Delivery Me thod Nasal Cannula Nasal Cannula Nasal Cannula Oxygen Flow Rate 2 2 2 03/17/22 14:05 03/17/22 14:10 03/17/22 14:15 Temperature 97.7 F Pulse Rate 52 L 52 L 55 L Respiratory Rate 16 16 16 Blood Pressure 105/64 104/68 113/71 Blood Pressure [Ri ght Arm] Pulse Oximetry 96 95 92 Oxygen Delivery Me thod Nasal Cannula Room Air Room Air Oxygen Flow Rate 2 03/17/22 14:20 03/17/22 14:30 03/17/22 14:30 Temperature 96.5 F L Pulse Rate 57 L 50 L Respiratory Rate 16 16 Blood Pressure 108/52 L Blood Pressure [Ri ght Arm] 114/68 Pulse Oximetry 92 90 Oxygen Delivery Me thod Room Air Room Air Oxygen Flow Rate Labs Labs: Ordering Physician: Chris Montano M.D. Date of Service: 03/17/22 Procedure(s): XR knee RT 2V Accession Number(s): [id number] cc: Burak Hatch M.D.; Chris Montano M.D.~ For Patients: As a result of the Cures Act, medical imaging exams and procedure reports are released immediately into your electronic medical record. You may view this report before your referring provider. If you have questions, please contact your health care provider. INDICATION: Right knee arthroplasty. TECHNIQUE: Two postoperative images of the right knee. FINDINGS: Right total knee arthroplasty. Patellar resurfacing. The components are adequately aligned and well seated. Air within the soft tissues and joint space related to the surgery. IMPRESSION: Right total knee arthroplasty. The components are adequately aligned and well seated. Dictated by Wes Cervantes MD @ 03/17/2022 2:41:40 PM (Electronically Signed) Assessment and Plan Assessment and plan (1) S/P total knee arthroplasty: Problem comment: right Status: Acute (2) Osteoarthritis of right knee: Status: Acute (3) Contact dermatitis: Problem comment: - had rash and blistering last surgery possibly from ChloraPrep Status: Chronic (4) Brugada syndrome: Problem comment: Never had symptoms or arrhythmia, so this is likely Brugada pattern as opposed to syndrome. Status: Chronic (5) Hyperlipidemia: Status: Acute Plan - Routine post op cares - Telemetry monitoring for bradycardia and h/o Brugada pattern - Continue home statin
--- NOTE | 2022-03-17 18:30 | PC.NURSE ---
1720 patient up to chair, slightly dizzy after getting to chair, per patient feeling subsided after sitting down and resting, working on eating supper, at bedside, after arriving to chair HR remained in the 50s, Vital Signs 1720 98/61 HR 52 O2 98% on Room Air, temp 97.5 temporal monitor, RR 18, 1735 patient HR seen on monitor outside room [id number], into assess patient and patient ashy colored and per patient expressed noted feeling well, MD at bedside and irina del rio called at 1740. 1740 Current fluids LR BOLUS, IV Left Hand #20, patient moved from chair into bed. 1741 site monitor, O2 2L NC, EKG. 1742 0.5mg atropine IVP, patient position Trendelenburg. 90/56 hr 54 O2 99% 2L 1744 0.5mg atropine IVP, 103/59 hr 59 O2 100% 2L 1745 [place] draw of labs and lab drawn, portable chest x-ray ordered 1750 2nd IV Left AC missed 1752 pt chilled, warm blankets. 1753 2nd IV Right Hand #20 1800 patient sitting up in bed, alert/talking, present at bedside. 122/84 1802 129/82 I feel better. 1805 129/85 HR 79 RR18 O2 99%
[2022-03-17] MEDS: CEFAZOLIN 2 GM in 0.9 % SODIUM CHLORIDE Mini-bag 100 ML IVPB (18:32)
[2022-03-17] MEDS: LACTATED RINGERS 1000 ML 1,000 ML 75 ML IV (18:33)
[2022-03-17] MEDS: ATROPINE 1 MG/10 ML SYRINGE 0.5 MG IVP ×2 (18:58→18:59)
[2022-03-17 19:31] LABS: Basophils Absolute Auto 0.01 K/uL (0.00-0.30); Basophils Percent Auto 0.1 % (0.0-3.0); Eosinophils Absolute Auto 0.01 K/uL (0.00-0.50); Eosinophils Percent Auto 0.1 % (0.0-7.0); Hematocrit 42.7 % (37.0-53.0); Hemoglobin* 14.3 gm/dL (13.5-17.5); Immature Granulocytes Abs Auto 0.02 K/uL (0.00-0.30); Immature Granulocytes Pct Auto 0.2 %; Lymphocytes Percent Auto 8.9 % (20-44); Mean Corpuscular HGB Conc 34 gm/dL (32-36); Mean Corpuscular Hemoglobin 30 pg (26-34); Mean Corpuscular Volume 91 fL (80-100); Monocytes Percent Auto 1.2 % (0.0-11.0); Neutrophils Percent Auto 89.5 % (42.0-72.0); Platelet Count* 212 K/uL (140-440); Red Blood Count 4.72 m/uL (4.30-5.90); White Blood Count* 8.47 K/uL (4.50-11.00)
[2022-03-17 19:32] LABS: Slide Review Reflex No
[2022-03-17 19:33] LABS: Chloride* 107 mmol/L (96-114); Potassium* 3.5 mmol/L (3.6-5.1); Sodium* 137 mmol/L (135-149)
[2022-03-17 19:36] LABS: Carbon Dioxide* 23 mmol/L (20-32); Creatinine* 0.9 mg/dL (0.5-1.5); Est. Creatinine Clearance* 68.85; Estimated Glomerular Filt Rate 95 ml/min
--- NOTE | 2022-03-17 19:36 | PC.NURSE ---
Pt alert and oriented x3. Afebrile. Pt reports 2/10 pain in right leg, scheduled Tylenol given. Pt is on bedrest following code blue due to decreased HR after getting up in chair. Dressing on right leg is CDI. Pt is tolerating regular diet. Pt currently alert and oriented x3. Family at bedside talking with pt. ?
[2022-03-17 19:37] LABS: Blood Urea Nitrogen* 20 mg/dL (7-30); Calcium* 8.6 mg/dL (8.4-10.6); Glucose* 176 mg/dL (60-115)
[2022-03-17 20:10] LABS: Troponin I* < 0.01 ng/mL (0.01-0.04)
--- NOTE | 2022-03-17 21:15 | PM.IMPN1 ---
Subjective Time Seen by Provider: 17:40 Date Seen: 03/17/22 Interval history: Just before 5:40 p.m. a nurse notified me that Salomon was profoundly bradycardic on telemetry with a heart rate of around 34. I ran in to see him and he was sitting in the chair, sluggish responses and ashen appearance. The nurses informed me that he had gotten up to the chair about 15-20 minutes earlier. We called a code blue and got him back into his bed. His systolic blood pressure was 58. We put him in Trendelenburg and started a L IV fluid bolus. He remained in sinus bradycardia, no other abnormal rhythms were seen. His heart rate started to come up and was 44, he was a little less pale, and his blood pressure had come up to a systolic of 90, but still feeling unwell. We then gave atropine total of 1 mg. His heart rate came up to 88 and his alertness improved to baseline. Blood pressure improved to a systolic of 107. I spoke with his and let her know what had happened. I suspect he likely had a vasovagal syncopal episode from getting up to the chair. I went back several times to check on him over the next hour and he was much improved and back to baseline. He was joking in sitting up with good color and alertness. Exam Const: Vital Signs, click to edit/add: Vital Signs - 24 hr 03/17/22 10:35 03/17/22 11:15 03/17/22 11:20 Temperature 98.3 F Pulse Rate 65 53 L 60 Pulse Rate [Left P ulse Oximeter] Respiratory Rate 18 18 18 Blood Pressure 149/102 H 182/100 H 158/88 H Blood Pressure [Ri ght Arm] Pulse Oximetry 95 99 99 Oxygen Delivery Me thod Room Air Nasal Cannula Nasal Cannula Oxygen Flow Rate 2 2 03/17/22 11:25 03/17/22 13:55 03/17/22 14:00 Temperature 97.7 F Pulse Rate 56 L 54 L 55 L Pulse Rate [Left P ulse Oximeter] Respiratory Rate 16 16 16 Blood Pressure 142/85 H 90/57 L 91/64 Blood Pressure [Ri ght Arm] Pulse Oximetry 97 90 90 Oxygen Delivery Me thod Nasal Cannula Nasal Cannula Nasal Cannula Oxygen Flow Rate 2 2 2 03/17/22 14:05 03/17/22 14:10 03/17/22 14:15 Temperature 97.7 F Pulse Rate 52 L 52 L 55 L Pulse Rate [Left P ulse Oximeter] Respiratory Rate 16 16 16 Blood Pressure 105/64 104/68 113/71 Blood Pressure [Ri t Arm] Pulse Oximetry 96 95 92 Oxygen Delivery Me thod Nasal Cannula Room Air Room Air Oxygen Flow Rate 2 03/17/22 14:20 03/17/22 14:30 03/17/22 14:30 Temperature 96.5 F L Pulse Rate 57 L 50 L Pulse Rate [Left P ulse Oximeter] Respiratory Rate 16 16 Blood Pressure 108/52 L Blood Pressure [Ri ght Arm] 114/68 Pulse Oximetry 92 90 Oxygen Delivery Me thod Room Air Room Air Oxygen Flow Rate 03/17/22 17:11 03/17/22 17:20 03/17/22 17:42 Temperature 97.5 F L Pulse Rate 54 L Pulse Rate [Left P ulse Oximeter] 52 L 54 L Respiratory Rate 18 18 Blood Pressure Blood Pressure [[facility]] 98/61 90/56 L Pulse Oximetry 98 99 Oxygen Delivery Me thod Room Air Nasal Cannula Oxygen Flow Rate 2 03/17/22 17:44 03/17/22 17:45 03/17/22 17:53 Temperature Pulse Rate Pulse Rate [Left P ulse Oximeter] 59 L 84 Respiratory Rate 20 Blood Pressure Blood Pressure [[facility]] 103/59 L 103/59 L 122/84 Pulse Oximetry 100 Oxygen Delivery Me thod Nasal Cannula Oxygen Flow Rate 2 03/17/22 18:00 03/17/22 18:02 03/17/22 18:05 Temperature 97.0 F L Pulse Rate Pulse Rate [Left P ulse Oximeter] 83 79 Respiratory Rate 18 18 Blood Pressure Blood Pressure [[facility]] 112/88 129/82 129/85 Pulse Oximetry 96 99 Oxygen Delivery Me thod Nasal Cannula Nasal Cannula Oxygen Flow Rate 2 2 03/17/22 14:35 03/17/22 15:15 03/17/22 15:00 Temperature 96.5 F L 96.7 F L 96.6 F L Pulse Rate Pulse Rate [Left P ulse Oximeter] 50 L 43 L 53 L Respiratory Rate 16 18 16 Blood Pressure Blood Pressure [Ri ght Arm] 114/68 129/78 131/80 Pulse Oximetry 92 97 93 Oxygen Delivery Me thod Room Air Room Air Room Air Oxygen Flow Rate 03/17/22 15:30 03/17/22 16:00 03/17/22 16:30 Temperature 96.6 F L 97.0 F L 97.4 F L Pulse Rate Pulse Rate [Left P ulse Oximeter] 50 L 51 L 49 L Respiratory Rate 16 18 18 Blood Pressure Blood Pressure [Ri ght Arm] 132/80 143/81 H 139/72 Pulse Oximetry 99 98 97 Oxygen Delivery Me thod Room Air Room Air Room Air Oxygen Flow Rate Labs Labs: Laboratory Results - last 24 hr 03/17/22 03/17/22 17:30 17:30 WBC 8.47 RBC 4.72 Hgb 14.3 Hct 42.7 MCV 91 MCH 30 MCHC 34 RDW Coeff of Amadou 12.0 Plt Count 212 Neut % (Auto) 89.5 H Lymph % (Auto) 8.9 L [place] % (Auto) 1.2 Eos % (Auto) 0.1 Baso % (Auto) 0.1 Neut # (Auto) 7.60 H Lymph # (Auto) 0.80 L [place] # (Auto) 0.10 Eos # (Auto) 0.01 Baso # (Auto) 0.01 Sodium 137 Potassium 3.5 L Chloride 107 Carbon Dioxide 23 BUN 20 Creatinine 0.9 Estimated Creat Clear 68.85 Estimated GFR 95 Glucose 176 H Calcium 8.6 Troponin I < 0.01 L
[2022-03-17] MEDS: ASPIRIN 81 MG TABLET EC PO (21:42)
[2022-03-17] MEDS: SENNOSIDES 1 TAB TABLET 2 TAB PO (21:42)
[2022-03-17] MEDS: POTASSIUM BICARB 25 MEQ EFFERVESCENT TAB PO (21:42)
[2022-03-18 01:00] VITALS: PULSE 62
[2022-03-18] MEDS: CEFAZOLIN 2 GM in 0.9 % SODIUM CHLORIDE Mini-bag 100 ML IVPB ×2 (01:59→09:13)
[2022-03-18 03:00] VITALS: PULSE 56
[2022-03-18 04:00] VITALS: BP 130/74; PULSE 59; RESP 18; TEMP 36.6; O2SAT 95
[2022-03-18] MEDS: ACETAMINOPHEN 500 MG TABLET 1000 MG PO ×2 (06:23→12:00)
--- NOTE | 2022-03-18 06:34 | PC.NURSE ---
Status [id number] Alert and oriented. Receiving scheduled Tylenol, nothing given PRN. BP stable. HR bradycardic. Telemetry monitoring. LR at 75mL/hr. IV ancef given. Pt had urinary retention, bladder scanned for 750mL and straight cathed for 800mL. Tolerating diet. Pt remains on bedrest d/t earlier episode. CMS intact to RLE. Dressing intact. Minimal resting overnight. ??
[2022-03-18 06:52] LABS: Basophils Absolute Auto 0.01 K/uL (0.00-0.30); Basophils Percent Auto 0.1 % (0.0-3.0); Hematocrit 41.6 % (37.0-53.0); Hemoglobin* 13.8 gm/dL (13.5-17.5); Immature Granulocytes Abs Auto 0.02 K/uL (0.00-0.30); Immature Granulocytes Pct Auto 0.2 %; Lymphocytes Percent Auto 6.4 % (20-44); Mean Corpuscular HGB Conc 33 gm/dL (32-36); Mean Corpuscular Hemoglobin 30 pg (26-34); Mean Corpuscular Volume 91 fL (80-100); Monocytes Percent Auto 6.4 % (0.0-11.0); Neutrophils Percent Auto 86.9 % (42.0-72.0); Platelet Count* 181 K/uL (140-440); RDW Coefficient of Variation % 12.4 % (11.5-15.5); Red Blood Count 4.57 m/uL (4.30-5.90)
[2022-03-18 06:58] LABS: Slide Review Reflex No
[2022-03-18 07:00] VITALS: O2SAT 97
[2022-03-18 07:03] LABS: Potassium* 4.4 mmol/L (3.6-5.1); Sodium* 138 mmol/L (135-149)
[2022-03-18 07:06] LABS: Creatinine* 0.9 mg/dL (0.5-1.5); Est. Creatinine Clearance* 68.85; Estimated Glomerular Filt Rate 95 ml/min
[2022-03-18 07:07] LABS: Blood Urea Nitrogen* 22 mg/dL (7-30)
[2022-03-18 07:08] LABS: INR 1.06 (0.91-1.10); Prothrombin Time 14.4 Seconds
[2022-03-18 08:00] VITALS: BP 130/74; PULSE 97; RESP 16; TEMP 36.9; O2SAT 97
[2022-03-18] MEDS: ONDANSETRON 2 MG/ML inj 4 MG IVP (08:18)
[2022-03-18] MEDS: OXYCODONE 5 MG TABLET PO ×2 (08:18→12:01)
[2022-03-18] MEDS: SODIUM CHLORIDE 0.9 % (FLUSH) 10 ML SYRINGE 5 ML IVF (08:21)
--- NOTE | 2022-03-18 08:32 | PM.ORPN ---
Subjective Subjective Time Seen by Provider: 07:30 Date Seen: 03/18/22 Principal diagnosis: Status post right knee replacement Interval history: Salomon had an episode of low blood pressure and low heart rate postoperatively yesterday. Chrissy del rio was called, it appears he had a vasovagal episode. He is feeling well now. Did not sleep well. He is looking forward to going home today. He has also had some urinary retention which is improving. Ortho Exam Narrative Exam Narrative: Alert and oriented x3. Patient is in no acute distress. Converses without labored breathing. Hearing is grossly intact. Ambulates with a walker. Examination of the right knee shows mild effusion. Mild soft tissue edema about the right knee. CMS intact right lower extremity. Bilateral calves are soft nontender. Const Vital Signs, click to edit/add: Vital Signs - 24 hr 03/17/22 10:35 03/17/22 11:15 03/17/22 11:20 Temperature 98.3 F Pulse Rate 65 53 L 60 Pulse Rate [Left Pulse Oximeter] Respiratory Rate 18 18 18 Blood Pressure 149/102 H 182/100 H 158/88 H Blood Pressure [Right Arm] Pulse Oximetry 95 99 99 Oxygen Delivery Method Room Air Nasal Cannula Nasal Cannula Oxygen Flow Rate 2 2 03/17/22 11:25 03/17/22 13:55 03/17/22 14:00 Temperature 97.7 F Pulse Rate 56 L 54 L 55 L Pulse Rate [Left Pulse Oximeter] Respiratory Rate 16 16 16 Blood Pressure 142/85 H 90/57 L 91/64 Blood Pressure [Right Arm] Pulse Oximetry 97 90 90 Oxygen Delivery Method Nasal Cannula Nasal Cannula Nasal Cannula Oxygen Flow Rate 2 2 2 03/17/22 14:05 03/17/22 14:10 03/17/22 14:15 Temperature 97.7 F Pulse Rate 52 L 52 L 55 L Pulse Rate [Left Pulse Oximeter] Respiratory Rate 16 16 16 Blood Pressure 105/64 104/68 113/71 Blood Pressure [Right Arm] Pulse Oximetry 96 95 92 Oxygen Delivery Method Nasal Cannula Room Air Room Air Oxygen Flow Rate 2 03/17/22 14:20 03/17/22 14:30 03/17/22 14:30 Temperature 96.5 F L Pulse Rate 57 L 50 L Pulse Rate [Left Pulse Oximeter] Respiratory Rate 16 16 Blood Pressure 108/52 L Blood Pressure [Right Arm] 114/68 Pulse Oximetry 92 90 Oxygen Delivery Method Room Air Room Air Oxygen Flow Rate 03/17/22 17:11 03/17/22 17:20 03/17/22 17:42 Temperature 97.5 F L Pulse Rate 54 L Pulse Rate [Left Pulse Oximeter] 52 L 54 L Respiratory Rate 18 18 Blood Pressure Blood Pressure [Right Arm] 98/61 90/56 L Pulse Oximetry 98 99 Oxygen Delivery Method Room Air Nasal Cannula Oxygen Flow Rate 2 03/17/22 17:44 03/17/22 17:45 03/17/22 17:53 Temperature Pulse Rate Pulse Rate [Left Pulse Oximeter] 59 L 84 Respiratory Rate 20 Blood Pressure Blood Pressure [Right Arm] 103/59 L 103/59 L 122/84 Pulse Oximetry 100 Oxygen Delivery Method Nasal Cannula Oxygen Flow Rate 2 03/17/22 18:00 03/17/22 18:02 03/17/22 18:05 Temperature 97.0 F L Pulse Rate Pulse Rate [Left Pulse Oximeter] 83 79 Respiratory Rate 18 18 Blood Pressure Blood Pressure [Right Arm] 112/88 129/82 129/85 Pulse Oximetry 96 99 Oxygen Delivery Method Nasal Cannula Nasal Cannula Oxygen Flow Rate 2 2 03/17/22 14:35 03/17/22 15:15 03/17/22 15:00 Temperature 96.5 F L 96.7 F L 96.6 F L Pulse Rate Pulse Rate [Left Pulse Oximeter] 50 L 43 L 53 L Respiratory Rate 16 18 16 Blood Pressure Blood Pressure [Right Arm] 114/68 129/78 131/80 Pulse Oximetry 92 97 93 Oxygen Delivery Method Room Air Room Air Room Air Oxygen Flow Rate 03/17/22 15:30 03/17/22 16:00 03/17/22 16:30 Temperature 96.6 F L 97.0 F L 97.4 F L Pulse Rate Pulse Rate [Left Pulse Oximeter] 50 L 51 L 49 L Respiratory Rate 16 18 18 Blood Pressure Blood Pressure [Right Arm] 132/80 143/81 H 139/72 Pulse Oximetry 99 98 97 Oxygen Delivery Method Room Air Room Air Room Air Oxygen Flow Rate 03/17/22 19:00 03/17/22 19:30 03/17/22 20:30 Temperature 98 F 98 F 98.3 F Pulse Rate Pulse Rate [Left Pulse Oximeter] 85 64 85 Respiratory Rate 18 18 18 Blood Pressure Blood Pressure [Right Arm] 130/80 130/80 131/97 H Pulse Oximetry 93 98 93 Oxygen Delivery Method Nasal Cannula Nasal Cannula Nasal Cannula Oxygen Flow Rate 2 2 2 03/17/22 23:00 03/17/22 23:00 03/17/22 23:52 Temperature 98 F Pulse Rate Pulse Rate [Left Pulse Oximeter] 59 L Respiratory Rate 18 18 Blood Pressure Blood Pressure [Right Arm] 142/80 H Pulse Oximetry 95 95 Oxygen Delivery Method Room Air Oxygen Flow Rate 03/18/22 01:00 03/18/22 03:00 03/18/22 04:00 Temperature 97.9 F Pulse Rate 62 56 L Pulse Rate [Left Pulse Oximeter] 59 L Respiratory Rate 18 Blood Pressure Blood Pressure [Right Arm] 130/74 Pulse Oximetry 95 Oxygen Delivery Method Room Air Oxygen Flow Rate Assessment and Plan Assessment and plan (1) S/P total knee arthroplasty: Problem details: right Status: Inactive Assessment and Plan: Plan for discharge is today to home if they meet discharge criteria. DVT prophylaxis includes aspirin 81 mg twice daily x1 month, Simon stockings x1 month may remove for 1 hr per day, frequent ambulation Remove dressing in 1 week. Observe wound and phone Orthopedics with any questions or concerns Return to clinic in 1 week for a wound check Return to clinic in [address] Montano Minimize narcotic use. Wean off and discontinue soon as possible. Activities as tolerated. No strenuous activity. Outpatient physical therapy as scheduled. Ice and elevate the operative extremity. No restriction on ice. After Salomon's left knee replacement he used minimal oxycodone. He plans to the same this time around. He tolerated oxycodone well. (2) Osteoarthritis of right knee: Status: Resolved (3) Contact dermatitis: Problem details: - had rash and blistering last surgery possibly from ChloraPrep Status: Chronic (4) Brugada syndrome: Problem details: Never had symptoms or arrhythmia, so this is likely Brugada pattern as opposed to syndrome. Status: Chronic (5) Hyperlipidemia: Status: Acute
[2022-03-18] MEDS: MAGNESIUM OXIDE 400 MG TABLET PO (09:10)
[2022-03-18] MEDS: SENNOSIDES 1 TAB TABLET 2 TAB PO (09:10)
[2022-03-18] MEDS: CELECOXIB 200 MG CAPSULE PO (09:12)
[2022-03-18] MEDS: ASPIRIN 81 MG TABLET EC PO (09:12)
[2022-03-18] MEDS: 0.9 % SODIUM CHLORIDE 250 ml IV (09:31)
[2022-03-18 10:15] VITALS: PULSE 56
--- NOTE | 2022-03-18 14:01 | PC.NURSE ---
Pt alert and oriented x3. Pt reported 4/10 pain in right leg, pain managed with PRN oxy. Pt right knee dressing is CDI. Pt is up SBA with walker and gait belt. Pt is tolerating regular diet. Verbal and written education was given to pt and spouse and who verbalized understanding. Pt left via wheelchair with spouse back to home at 1255.
== END 2022-03-18 12:55 | disposition home or self-care (01) ==
LOC: OR 10:00 → MEDSURG 10:03
PROVIDERS: Family Medicine; PCP Family Medicine; Visit Provider Orthopaedic Surgery
PROC: (CPT 27447; principal; 2022-03-17 12:30)
DX: M17.11 Unilateral primary osteoarthritis, right knee (principal); R55 Syncope and collapse; I45.4 Nonspecific intraventricular block; R00.1 Bradycardia, unspecified; K21.9 Gastro-esophageal reflux disease without esophagitis; L25.9 Unspecified contact dermatitis, unspecified cause; N52.9 Male erectile dysfunction, unspecified; E78.5 Hyperlipidemia, unspecified; Z85.828 Personal history of other malignant neoplasm of skin
CPT/HCPCS: 27447; 01402; 36415; 51702; 64447; 64454; 71045; 73560; 76942; 80048; 82565; 84132; 84295; 84484; 84520; 85025; 85610; 92950; 94761; 97110; 97116; 97161; 97165; 97535; A9270; C1776; J0461; J0690; J1100; J2250; J2405; J2704; J2795; J3010; J7050; J7120

== ENCOUNTER 2022-10-29 09:18 | Outpatient (CLI) | payer MEDICARE, BC, SELFPAY | END 2022-10-29 09:19 | disposition home or self-care (01) | PROVIDERS: PCP Family Medicine; Visit Provider Family Medicine | DX: Z00.00 Encounter for general adult medical examination without abnormal findings (principal); E78.5 Hyperlipidemia, unspecified; Z12.5 Encounter for screening for malignant neoplasm of prostate; Z13.0 Encounter for screening for diseases of the blood and blood-forming organs and certain disorders involving the immune mechanism | CPT/HCPCS: 80048; 80061; 84153; 84460; 85025 ==

== ENCOUNTER 2023-03-23 11:48 | Outpatient (CLI) | payer MEDICARE, BC, SELFPAY ==
--- OUTSIDE RECORDS SUMMARY | 2023-03-23 11:50 | XMS_ITS | Clinical Summary ---
Author Name Unknown Organization [facility] Address [place], [place] [address] Care Team Providers Care Weight Guesser Name Role Phone Burak Hatch MD Primary Care Provider + Allergies Active Allergy Reactions Criticality Noted Date Comments Homeopathic Products 01/25/2009 Medications Medication Sig Dispensed Refills Start Date End Date Status multivitamin (MVI) tablet take 1 tablet by oral route once daily with food 0 01/25/2009 Active omega-3 fatty acids-vitamin E (FISH OIL) 1,000 mg Cap take one tab BID 0 01/25/2009 Active aspirin enteric coated 81 mg tablet take 1 tablet (81 mg) by oral route once daily 0 01/25/2009 Active magnesium citrate 100 mg tab Take by mouth 2 times daily. 0 01/12/2013 Active tadalafil (CIALIS) 20 mg tabletIndications:Erec tile dysfunction, unspecified erectile dysfunction type Take 1 tablet by mouth once daily if needed for Erectile Dysfunction. Take 30 minutes before sexual activity. 6 tablet 12 03/16/2016 Active cyanocobalamin (VITAMIN B-12) 1,000 mcg tabletIndications:Debra mccray general medical examination at a health care facility Take 1 tablet by mouth once daily. 0 03/23/2017 Active Cholecalciferol, Vitamin D3, (VITAMIN D-3) 2,000 unit tabletIndications:Debra mccray general medical examination at a health care facility Take 1 tablet by mouth once daily. 0 03/23/2017 Active simvastatin (ZOCOR) 20 mg tabletIndications:Hype rlipidemia, unspecified hyperlipidemia type Take 1 tablet by mouth once daily. 90 tablet 3 03/23/2017 Active magnesium sulfate 100 mg cap Take 1 tablet by mouth. 0 Active multivitamin therapeutic (THERAGRAN; ONCOVITE) tablet Take 1 tablet by mouth. 0 Active youzp-6-JKW-EPA-fish oil 300-1,000 mg capsule Take 1 g by mouth. 0 Active potassium chloride (KLOR-CON 10; K-TAB) 10 mEq Controlled-Release tablet Take by mouth. 0 Active aspirin (ECOTRIN) 81 mg enteric coated tablet Take 81 mg by mouth. 0 Active naproxen (NAPROSYN) 500 mg tabletIndications:Arth ralgia, unspecified joint TAKE 1 TABLET BY MOUTH TWICE A DAY WITH MEALS. 180 tablet 0 10/28/2018 Active simvastatin (ZOCOR) 20 mg tabletIndications:Hype rlipidemia, unspecified hyperlipidemia type TAKE ONE TABLET BY MOUTH EVERY DAY 30 tablet 0 10/28/2018 Active Active Problems Problem Noted Date Diagnosed Date Major depression, single episode 01/27/2010 Hyperlipidemia 01/27/2009 Erectile dysfunction 01/27/2009 Cardiogenic Syncope/Hypervagatonia 05/23/2006 Overview: EEG negative, Echo - normal, Holter - normal GERD 05/23/2006 Rosacea 05/23/2006 Colon polyps Overview: repeat scope 2011 Immunizations Name Administration Dates Next Due Influenza, IIV3 (Age >=3 years) 11/29/19 13,12/21/2011,12/21/2010,12/06/2009, 12/06/2008 Influenza, IIV4 11/22/2016,11/23/2015,11/22/2014 ,11/22/2013 Td (Age >=7 Years) 12/30/1999 Tdap 03/23/2017,05/09/2007 Family History Medical History Relation Name Comments Cancer Brother 2 skin Diabetes Brother 3 Heart Disease Brother 4 [place] Heart Disease Brother 5 CHF Hypertension Daughter [...] Tobacco Use Types Packs/Day Years Used Date Smoking Tobacco: Former Cigarettes Q uit: 02/22/1969 Smokeless Tobacco: Never Tobacco Cessation:Counseling Given: Yes Alcohol Use Standard Drinks/Week Comments Yes 0.8 (1 standard drin k = 0.6 oz pure alcohol) Alcoholic Drinks/day: 1 per week PHQ-2 Answer Date Recorded PHQ-2 Score 0 04/24/2018 Sex and Gender Information Value Date Recorded Sex Assigned at Not on file Gender Identity Not on file Sexual Orientation Not on file Obstetrics History Last Filed Vital Signs Vital Sign Reading Time Taken Comments Blood Pressure 139/80 04/29/2018 9:51 AM DEAN OF GRADUATE STUDIES Pulse 52 04/29/2018 9:51 AM DEAN OF GRADUATE STUDIES Temperature 37 ??C (98.6 ??F) 04/29/2018 9:51 AM DEAN OF GRADUATE STUDIES Respiratory Rate 14 11/15/2017 9:31 AM CDT Oxygen Saturation 98% 04/29/2018 9:51 AM DEAN OF GRADUATE STUDIES Inhaled Oxygen Concentration - - Weight 78.7 kg (173 lb 9.6 oz) 04/29/2018 9:51 A M DEAN OF GRADUATE STUDIES shoes on Height 171 cm (5' 7.32) 11/15/2017 9:31 AM CDT Body Mass Index 26.93 11/15/2017 9:31 AM CDT Plan of Treatment Health Maintenance Due Date Last Done Comments COVID-19 vaccine series (#1) 03/19/1956 Zoster (shingles) series for age 50+ (1 of 2) 2006 Colonoscopy through age 75 03/08/201803/08, 03/08/2013, 11/22/2006, Additional history exists BMI (ht and wt on same day) for age 18+ 11/15/2018 11/15/2017, 03/23/2017, 03/16/2016, Additional history exists Depression screening for age 12+ 11/18/2018 11/18/2017, 11/16/2017, 11/15/2017, Additional history exists Pneumococcal series for age 65+ (1 of 1 - PCV) 2021 Lipids for age 45-75 03/23/2022 03/23/2017, 03/16/2016, 03/11/2015, Additional history exists Influenza for age 65+ 10/23/2022 11/22/2016 , 11/23/2015, 11/22/2014, Additional history exists Tetanus booster 03/23/2027 03/23/2017, 04/22, 12/30/1999 Hepatitis C screening for ag e 18-79 Completed 03/23/2017 Tdap Completed 03/23/2017, 05/09/2007 Medical Devices Implanted Type Area Blueprint Reproducer Device Identifier Shelf Expiration Date Model / Serial / Lot [id number] - [id number] Implanted:Qty: 1 on 05/02/2014 by Jamarcus La MD at [facility] Right: Shoulder [employer] 01/23/2016 AR-1662BCC -7 / / [id number] - [id number] Implanted:Qty: 4 on 05/02/2014 by Jamarcus La MD at [facility] Right: Shoulder [employer] 12/24/2015 AR-2324BCC / / [id number] Advance Directives Documents on File Type Date Recorded Patient Clinical Partner Expl anation Healthcare Directive 08/16/2008 12:00 AM A DVANCE DIRECTIVE Healthcare Directive 07/30/2008 [facility] ARE DIRECTIVE, [facility], [facility], 08/06/2008 Latest Code Status on File Code Status Date Activated Date Inactivated Comments Full Code 05/02/2014 2:15 PM 05/02/2014 7:17 PM Code Status History Code Status Date Activated Date Inactivated Comments Full Code 05/02/2014 9:02 AM 05/02/2014 2:15 PM Full Code 02/06/2005 9:44 AM 02/07/2005 3:54 PM Care Teams Weight Guesser Relationship Specialty Start Date End Date Burak Hatch MD [address] [place] [id number] PCP - General 05/23/04
== END 2023-03-23 11:49 | disposition home or self-care (01) ==
LOC: FBOREF 11:48
PROVIDERS: PCP Family Medicine; Visit Provider Family Medicine
DX: N52.9 Male erectile dysfunction, unspecified (principal)
CPT/HCPCS: 84403

== ENCOUNTER 2023-11-18 09:16 | Outpatient (CLI) | payer MEDICARE, BC, SELFPAY ==
--- OUTSIDE RECORDS SUMMARY | 2023-11-18 09:27 | XMS_ITS | Clinical Summary ---
Author Organization [facility] Address [place], [place] [address] Care Team Providers Care Computer Security Coordinator Name Role Phone Burak Hatch MD Primary [...] mg cap Take 1 tablet by mouth. Active multivitamin therapeutic (THERAGRAN; ONCOVITE) tablet Take 1 tablet by mouth. Active rluor-0-GCK-EPA-fish oil 300-1,000 mg capsule Take 1 g by mouth. Active potassium chloride (KLOR-CON 10; K-TAB) 10 mEq Controlled-Release tablet Take by mouth. Active aspirin (ECOTRIN) 81 mg enteric coated tablet Take 81 mg by mouth. Active naproxen (NAPROSYN) 500 mg tabletIndications:Arth ralgia, unspecified joint TAKE 1 TABLET BY MOUTH TWICE A DAY WITH MEALS. 180 tablet 10/28/2018 Active simvastatin (ZOCOR) 20 mg tabletIndications:Hype rlipidemia, unspecified hyperlipidemia type TAKE ONE TABLET BY MOUTH EVERY DAY 30 tablet 10/28/2018 Active Active Problems Problem Noted Date Diagnosed Date Major depression, single episode 01/27/2010 Hyperlipidemia 01/27/2009 Erectile dysfunction 01/27/2009 Cardiogenic Syncope/Hypervagatonia 05/23/2006 Overview (05/23/2006): EEG negative, Echo - normal, Holter - normal GERD 05/23/2006 Rosacea 05/23/2006 Colon polyps Overview (01/27/2009): repeat scope 2011 Immunizations Name Administration Dates Next Due Influenza, IIV3 (Age >=3 years) 11/29/19 13,12/21/2011,12/21/2010,12/06/2009, 12/06/2008 Influenza, IIV4 11/22/2016,11/23/2015,11/22/2014 ,11/22/2013 Td (Age >=7 Years) 12/30/1999 Tdap 03/23/2017,05/09/2007 Family History Medical History Relation Name Comments Cancer Brother 2 skin Diabetes Brother 3 Heart Disease Brother 4 [place] Heart Disease Brother 5 CHF Hypertension Daughter [...] Comments Blood Pressure 139/80 04/29/2018 9:51 AM GRATED CHEESE MAKER Pulse 52 04/29/2018 9:51 AM GRATED CHEESE MAKER Temperature 37 ??C (98.6 ??F) 04/29/2018 9:51 AM GRATED CHEESE MAKER Respiratory Rate 14 11/15/2017 9:31 AM CDT Oxygen Saturation 98% 04/29/2018 9:51 AM GRATED CHEESE MAKER Inhaled Oxygen Concentration - - Weight 78.7 kg (173 lb 9.6 oz) 04/29/2018 9:51 A M GRATED CHEESE MAKER shoes on Height 171 cm (5' 7.32) 11/15/2017 9:31 AM CDT Body Mass Index 26.93 11/15/2017 9:31 AM CDT Plan of Treatment Health Maintenance Due Date Last Done Comments Zoster (shingles) series for age 50+ (1 [...] 03/23/2022 03/23/2017, 03/16/2016, 03/11/2015, Additional history exists COVID-19 vaccine series ( - 2023- season) 2023 Influenza for age 65+ 10/24/2023 11/22/2016 , 11/23/2015, 11/22/2014, Additional history exists Tetanus booster 03/23/2027 03/23/2017, 04/22, 12/30/1999 Hepatitis C screening for ag e 18-79 Completed 03/23/2017 Tdap Completed 03/23/2017, 05/09/2007 Medical Devices Implanted Type Area Laundry Attendant Device Identifier Shelf Expiration Date Model / Serial / Lot [id number] - [id number] Implanted:Qty: 1 on 05/02/2014 by Jamarcus La MD at [facility] Right: Shoulder [employer] 01/23/2016 AR-1662BCC -7 / / [id number] - [id number] Implanted:Qty: 4 on 05/02/2014 by Jamarcus La MD at [facility] Right: Shoulder [employer] 12/24/2015 AR-2324BCC / / [id number] Procedures Procedure Name Priority Date/Time Associated Diagnosis Comments ANTI HCV Routine 03/23/2017 9:35 AM GRATED CHEESE MAKER Need for hepatitis C screening test LIPID PANEL W REFLEX MEASURED LDL Routine 03/23/2017 9:35 AM GRATED CHEESE MAKER Hyperlipidemia, unspecified hyperlipidemia type COLONOSCOPY SCREENING Routine 03/08/2013 from Last 3 Months or Most Recently Relevant to Health Maintenance Results * LIPID PANEL W REFLEX MEASURED LDL (03/23/2017 9:35 AM GRATED CHEESE MAKER) CHOLESTEROL,TOTAL 177 100 - 199 mg/dL 03/23/2017 10:20 AM GRATED CHEESE MAKER [facility] TRIGLYCERIDES 72 <150 mg/dL 03/23/2017 10:20 AM GRATED CHEESE MAKER [facility] HDL CHOLESTEROL 52 >40 mg/dL 8 10:20 AM GRATED CHEESE MAKER [facility] NON-HDL CHOLESTEROL 125 <145 mg/dl 03/23/2017 10:20 AM GRATED CHEESE MAKER [facility] CHOL/HDL RATIO 3.40 <4.50 03/23/2017 10:20 AM GRATED CHEESE MAKER [facility] LDL CHOLESTEROL 111 <=130 mg/dL 03/23/2017 10:20 AM [facility] PROVIDER ORDERED STATUS RANDOM 03/23/2017 10:20 AM GRATED CHEESE MAKER [facility] Blood BLOOD SPECIMEN / Unknown Venipuncture / Unknown 03/23/2017 9:35 AM GRATED CHEESE MAKER 03/23/2017 9:38 AM GRATED CHEESE MAKER Burak Hatch MD CHEMISTRY [facility] [address] [place] [address] * ANTI HCV (03/23/2017 9:35 AM GRATED CHEESE MAKER) HEPATITIS C ANTIBODY Non-Reacti ve Non-Reacti ve 03/23/2017 4:40 PM GRATED CHEESE MAKER [facility] Blood BLOOD SPECIMEN / Unknown Venipuncture / Unknown 03/23/2017 9:35 AM GRATED CHEESE MAKER 03/23/2017 9:38 AM GRATED CHEESE MAKER Narrative [facility] - 03/23/2017 4:40 PM GRATED CHEESE MAKER Antibodies to HCV not detected; does not exclude the possibility of exposure to HCV. Burak Hatch MD SEND OUTS [facility] [address] [place] [address], * COLONOSCOPY SCREENING (03/08/2013) Jayme Contreras MD GI PROCEDURE ORD from Last 3 Months or Most Recently Relevant to Health Maintenance Advance Directives Documents on File Type Date Recorded Patient Lead Software Tester Expl anation Healthcare Directive 08/16/2008 12:00 AM A DVANCE DIRECTIVE Healthcare Directive 07/30/2008 [facility]ALTH ARE DIRECTIVE[place] [facility] [place] * Full Code (Latest Code Status on File) Date Activated Date Inactivated Comments 05/02/2014 2:15 PM 05/02/2014 7:17 PM * Full Code Date Activated Date Inactivated Comments 05/02/2014 9:02 AM 05/02/2014 2:15 PM * Full Code Date Activated Date Inactivated Comments 02/06/2005 9:44 AM 02/07/2005 3:54 PM Care Teams Computer Security Coordinator Relationship Specialty Start Date End Date Burak Hatch MD [address] [place] [address] PCP - General 05/23/04
== END 2023-11-18 09:17 | disposition home or self-care (01) ==
PROVIDERS: PCP Family Medicine; Visit Provider Family Medicine
DX: E78.2 Mixed hyperlipidemia (principal); Z12.5 Encounter for screening for malignant neoplasm of prostate
CPT/HCPCS: 80048; 80061; 84460; G0103

== ENCOUNTER 2023-12-02 08:55 | Outpatient (CLI) | payer MEDICARE, BC, SELFPAY ==
--- OUTSIDE RECORDS SUMMARY | 2023-12-02 08:58 | XMS_ITS | Clinical Summary ---
Author Organization [employer] [facility] Address [place], [place] [address] Care Team Providers Care Detonator Assembler Name Role Phone Burak Hatch MD Primary [...] tablet Take 1 tablet by mouth. Active qzuro-4-PVO-EPA-fish oil 300-1,000 mg capsule Take 1 g [...] Diabetes Brother 3 Heart Disease Brother 4 [place] Heart Disease Brother 5 CHF Hypertension Daughter [...] Comments Blood Pressure 139/80 04/29/2018 9:51 AM MOTOR COACH OPERATOR Pulse 52 04/29/2018 9:51 AM MOTOR COACH OPERATOR Temperature 37 ??C (98.6 ??F) 04/29/2018 9:51 AM MOTOR COACH OPERATOR Respiratory Rate 14 11/15/2017 9:31 AM CDT Oxygen Saturation 98% 04/29/2018 9:51 AM MOTOR COACH OPERATOR Inhaled Oxygen Concentration - - Weight 78.7 kg (173 lb 9.6 oz) 04/29/2018 9:51 A M MOTOR COACH OPERATOR shoes on Height 171 cm (5' 7.32) [...] 03/23/2017, 05/09/2007 Medical Devices Implanted Type Area Live Study Manager Device Identifier Shelf Expiration Date Model / Serial / Lot [id number] - [id number] Implanted:Qty: 1 on 05/02/2014 by Jamarcus La MD at [facility] Right: Shoulder [employer] 01/23/2016 AR-1662BCC -7 / / [id number] - [id number] Implanted:Qty: 4 on 05/02/2014 by Jamarcus La MD at [facility] Right: Shoulder [employer] 12/24/2015 AR-2324BCC / / [id number] Procedures Procedure Name Priority Date/Time Associated Diagnosis Comments ANTI HCV Routine 03/23/2017 9:35 AM MOTOR COACH OPERATOR Need for hepatitis C screening test LIPID PANEL W REFLEX MEASURED LDL Routine 03/23/2017 9:35 AM MOTOR COACH OPERATOR Hyperlipidemia, unspecified hyperlipidemia type COLONOSCOPY SCREENING Routine 03/08/2013 from Last 3 Months or Most Recently Relevant to Health Maintenance Results * LIPID PANEL W REFLEX MEASURED LDL (03/23/2017 9:35 AM MOTOR COACH OPERATOR) CHOLESTEROL,TOTAL 177 100 - 199 mg/dL 03/23/2017 10:20 AM MOTOR COACH OPERATOR [facility] TRIGLYCERIDES 72 <150 mg/dL 03/23/2017 10:20 AM MOTOR COACH OPERATOR [facility] HDL CHOLESTEROL 52 >40 mg/dL 8 10:20 AM MOTOR COACH OPERATOR [facility] NON-HDL CHOLESTEROL 125 <145 mg/dl 03/23/2017 10:20 AM MOTOR COACH OPERATOR [facility] CHOL/HDL RATIO 3.40 <4.50 03/23/2017 10:20 AM MOTOR COACH OPERATOR [facility] LDL CHOLESTEROL 111 <=130 mg/dL 03/23/2017 10:20 AM [facility] PROVIDER ORDERED STATUS RANDOM 03/23/2017 10:20 AM MOTOR COACH OPERATOR [facility] Blood BLOOD SPECIMEN / Unknown Venipuncture / Unknown 03/23/2017 9:35 AM MOTOR COACH OPERATOR 03/23/2017 9:38 AM MOTOR COACH OPERATOR Burak Hatch MD CHEMISTRY [facility] [address] [place] [address] * ANTI HCV (03/23/2017 9:35 AM MOTOR COACH OPERATOR) HEPATITIS C ANTIBODY Non-Reacti ve Non-Reacti ve 03/23/2017 4:40 PM MOTOR COACH OPERATOR [facility] Blood BLOOD SPECIMEN / Unknown Venipuncture / Unknown 03/23/2017 9:35 AM MOTOR COACH OPERATOR 03/23/2017 9:38 AM MOTOR COACH OPERATOR Narrative [facility] - 03/23/2017 4:40 PM MOTOR COACH OPERATOR Antibodies to HCV not detected; does not exclude the possibility of exposure to HCV. Burak Hatch MD SEND OUTS [facility] [address] [place] [address], * COLONOSCOPY SCREENING (03/08/2013) Jayme Contreras MD GI PROCEDURE ORD from Last 3 Months or Most Recently Relevant to Health Maintenance Advance Directives Documents on File Type Date Recorded Patient Collar Setter Expl anation Healthcare Directive 08/16/2008 12:00 AM A DVANCE DIRECTIVE Healthcare Directive 07/30/2008 HEALTH ARE DIRECTIVE, FBO, [facility], 08/06/2008 * Full Code (Latest Code Status on File) Date Activated Date Inactivated Comments 05/02/2014 2:15 PM 05/02/2014 7:17 PM * Full Code Date Activated Date Inactivated Comments 05/02/2014 9:02 AM 05/02/2014 2:15 PM * Full Code Date Activated Date Inactivated Comments 02/06/2005 9:44 AM 02/07/2005 3:54 PM Care Teams Detonator Assembler Relationship Specialty Start Date End Date Burak Hatch MD [address] [place] [address] PCP - General 05/23/04
--- NOTE | 2023-12-02 09:15 | CRLHL7_ITS ---
For Patients: As a result of the Century Cures Act, medical imaging exams and procedure reports are released immediately into your electronic medical record. You may view this report before your referring provider. If you have questions, please contact your health care provider. Indication: Radiculopathy. Technique: MRI of the cervical spine was performed without the use of intravenous contrast. Comparison: Cervical spine radiographs 11/18/2023. Findings: The vertebral body heights appear maintained without evidence of fracture. No discrete T1 hypointense marrow infiltrating process. [id number] multilevel disc height loss and degeneration. No abnormal cord signal. C2-3: No spinal canal or neural foraminal narrowing. C3-4: Trace degenerative retrolisthesis. Disc osteophyte complex results in moderate spinal canal narrowing. Mild neural foraminal narrowing secondary to uncovertebral and facet arthropathy. C4-5: Disc osteophyte complex results in mild spinal canal narrowing. Moderate right and mild left neural foraminal narrowing secondary to uncovertebral joint and facet arthropathy. C5-6: Disc osteophyte complex results in mild spinal canal narrowing. Moderately severe left and moderate right neural foraminal narrowing secondary to uncovertebral joint and facet arthropathy. C6-7: Disc bulge results in minimal spinal canal narrowing. Udfx-ed-dmtbkttf left and mild right neural foraminal narrowing. C7-T1: No spinal canal or neural foraminal narrowing. Impression: 1. At C3-4, moderate spinal canal stenosis. 2. At C4-5, mild spinal canal with moderate right and mild left neural foraminal narrowing. 3. At C5-6, mild spinal canal with moderately severe left and moderate right neural foraminal stenosis. 4. No abnormal cord signal. Dictated by Mariano Grant MD @ 12/03/2023 10:58:09 AM (Electronically Signed)
== END 2023-12-02 08:56 | disposition home or self-care (01) ==
LOC: MRI 08:56
PROVIDERS: PCP Family Medicine; Visit Provider Family Medicine
DX: M54.12 Radiculopathy, cervical region (principal); M48.02 Spinal stenosis, cervical region; M50.221 Other cervical disc displacement at C4-C5 level
CPT/HCPCS: 72141

== ENCOUNTER 2023-12-20 08:38 | Outpatient (CLI) | payer MEDICARE, BC, SELFPAY ==
--- OUTSIDE RECORDS SUMMARY | 2023-12-20 08:41 | XMS_ITS | Clinical Summary ---
Author Organization [email or web address] [facility] Address [place], [place] [address] Care Team Providers Care Varnish Supervisor Name Role Phone Burak Hatch MD Primary [...] tablet Take 1 tablet by mouth. Active golvt-1-QYN-EPA-fish oil 300-1,000 mg capsule Take 1 g [...] Diabetes Brother 3 Heart Disease Brother 4 [place] Heart Disease Brother 5 CHF Hypertension Daughter [...] Comments Blood Pressure 139/80 04/29/2018 9:51 AM STEAM TABLE ASSOCIATE Pulse 52 04/29/2018 9:51 AM STEAM TABLE ASSOCIATE Temperature 37 ??C (98.6 ??F) 04/29/2018 9:51 AM STEAM TABLE ASSOCIATE Respiratory Rate 14 11/15/2017 9:31 AM CDT Oxygen Saturation 98% 04/29/2018 9:51 AM STEAM TABLE ASSOCIATE Inhaled Oxygen Concentration - - Weight 78.7 kg (173 lb 9.6 oz) 04/29/2018 9:51 A M STEAM TABLE ASSOCIATE shoes on Height 171 cm (5' 7.32) [...] 03/23/2017, 05/09/2007 Medical Devices Implanted Type Area Geographic Information Systems Engineer Device Identifier Shelf Expiration Date Model / Serial / Lot [id number] - [id number] Implanted:Qty: 1 on 05/02/2014 by Jamarcus La MD at [facility] Right: Shoulder [employer] 01/23/2016 AR-1662BCC -7 / / [id number] - [id number] Implanted:Qty: 4 on 05/02/2014 by Jamarcus La MD at [facility] Right: Shoulder [employer] 12/24/2015 AR-2324BCC / / [id number] Procedures Procedure Name Priority Date/Time Associated Diagnosis Comments ANTI HCV Routine 03/23/2017 9:35 AM STEAM TABLE ASSOCIATE Need for hepatitis C screening test LIPID PANEL W REFLEX MEASURED LDL Routine 03/23/2017 9:35 AM STEAM TABLE ASSOCIATE Hyperlipidemia, unspecified hyperlipidemia type COLONOSCOPY SCREENING Routine 03/08/2013 from Last 3 Months or Most Recently Relevant to Health Maintenance Results * LIPID PANEL W REFLEX MEASURED LDL (03/23/2017 9:35 AM STEAM TABLE ASSOCIATE) CHOLESTEROL,TOTAL 177 100 - 199 mg/dL 03/23/2017 10:20 AM STEAM TABLE ASSOCIATE [facility] TRIGLYCERIDES 72 <150 mg/dL 03/23/2017 10:20 AM STEAM TABLE ASSOCIATE [facility] HDL CHOLESTEROL 52 >40 mg/dL 8 10:20 AM STEAM TABLE ASSOCIATE [facility] NON-HDL CHOLESTEROL 125 <145 mg/dl 03/23/2017 10:20 AM STEAM TABLE ASSOCIATE [facility] CHOL/HDL RATIO 3.40 <4.50 03/23/2017 10:20 AM STEAM TABLE ASSOCIATE [facility] LDL CHOLESTEROL 111 <=130 mg/dL 03/23/2017 10:20 AM [facility] PROVIDER ORDERED STATUS RANDOM 03/23/2017 10:20 AM STEAM TABLE ASSOCIATE [facility] Blood BLOOD SPECIMEN / Unknown Venipuncture / Unknown 03/23/2017 9:35 AM STEAM TABLE ASSOCIATE 03/23/2017 9:38 AM STEAM TABLE ASSOCIATE Burak Hatch MD CHEMISTRY [facility] [address] [place] [address] * ANTI HCV (03/23/2017 9:35 AM STEAM TABLE ASSOCIATE) HEPATITIS C ANTIBODY Non-Reacti ve Non-Reacti ve 03/23/2017 4:40 PM STEAM TABLE ASSOCIATE [facility] Blood BLOOD SPECIMEN / Unknown Venipuncture / Unknown 03/23/2017 9:35 AM STEAM TABLE ASSOCIATE 03/23/2017 9:38 AM STEAM TABLE ASSOCIATE Narrative [facility] - 03/23/2017 4:40 PM STEAM TABLE ASSOCIATE Antibodies to HCV not detected; does not exclude the possibility of exposure to HCV. Burak Hatch MD SEND OUTS [facility] [address] [place] [address], * COLONOSCOPY SCREENING (03/08/2013) Jayme Contreras MD GI PROCEDURE ORD from Last 3 Months or Most Recently Relevant to Health Maintenance Advance Directives Documents on File Type Date Recorded Patient Bi Data Modeler Expl anation Healthcare Directive 08/16/2008 12:00 AM A DVANCE DIRECTIVE Healthcare Directive 07/30/2008 HEALTH ARE DIRECTIVE, [facility]BO, [facility] [place] * Full Code (Latest Code Status on File) Date Activated Date Inactivated Comments 05/02/2014 2:15 PM 05/02/2014 7:17 PM * Full Code Date Activated Date Inactivated Comments 05/02/2014 9:02 AM 05/02/2014 2:15 PM * Full Code Date Activated Date Inactivated Comments 02/06/2005 9:44 AM 02/07/2005 3:54 PM Care Teams Varnish Supervisor Relationship Specialty Start Date End Date Burak Hatch MD [address] [place] [address] PCP - General 05/23/04
--- NOTE | 2023-12-20 10:35 | W.ANESCHARGE ---
Anesthesia Charges Start Date/Time Anesthesia Start Date: 12/20/23 Anesthesia Start Time: 10:10 Stop Date/Time Anesthesia Stop Date: 12/20/23 Anesthesia Stop Time: 10:35
--- NOTE | 2023-12-20 10:58 | W.ANESCHARGE ---
Anesthesia Charges Start Date/Time Anesthesia Start Date: 12/20/23 Anesthesia Start Time: 10:10 Stop Date/Time Anesthesia Stop Date: 12/20/23 Anesthesia Stop Time: 10:35
== END 2023-12-20 08:39 | disposition home or self-care (01) ==
LOC: OP CLINIC 08:39
PROVIDERS: PCP Family Medicine; Visit Provider Surgery
DX: Z12.11 Encounter for screening for malignant neoplasm of colon (principal)
CPT/HCPCS: 00811; 00812; 45378; J2704

== ENCOUNTER 2024-07-28 15:46 | Outpatient (CLI) | payer MEDICARE, BC, SELFPAY ==
--- NOTE | 2024-07-28 16:15 | CRLHL7_ITS ---
For Patients: As a result of the Century Cures Act, medical imaging exams and procedure reports are released immediately into your electronic medical record. You may view this report before your referring provider. If you have questions, please contact your health care provider. INDICATION: Lumbar spondylosis. COMPARISON: 07/24/2024. TECHNIQUE: Sagittal T1, T2, and STIR sequences. Axial T1 and T2 weighted sequences. FINDINGS: Grade 1 anterolisthesis of L4 on L5 measures approximately 5 mm. Otherwise, normal alignment. No fractures. No vertebral body loss of height. No ligamentous injury. No suspicious osseous lesions. Normal conus terminates at L1. T11-12: Disc degeneration posterior disc bulge. No spinal canal or neural foraminal narrowing. T12-L1: Disc degeneration posterior disc bulge. No narrowing of spinal canal. No neural foraminal narrowing. L1-2: Disc degeneration and posterior disc bulge. Superimposed right paracentral disc protrusion measures approximately 4 minutes short axis. Mild narrowing of spinal canal. Mild narrowing of bilateral foramina. L2-3: Disc degeneration posterior disc bulge. Mild narrowing of spinal canal. No neural foraminal narrowing. L3-4: Disc degeneration loss disc height. Modic type 1 endplate changes. Postop changes of right hemilaminectomy. No narrowing of the spinal canal. Mild narrowing of the left neural foramen. No narrowing of the right neural foramen. Mild facet arthropathy. L4-5: Grade 1 anterolisthesis. Disc degeneration and unroofed posterior disc bulge. Otav-cb-qyjnubeo narrowing of spinal canal. Oblique orientation of bilateral foramina with moderate narrowing. Moderate facet arthropathy. L5-S1: Disc degeneration and diffuse disc bulge eccentric to the left. Postop changes of left hemilaminectomy. No narrowing of spinal canal. There is narrowing of the left subarticular recess with potential impingement of the traversing left S1 nerve root. No neural foraminal narrowing. Moderate facet arthropathy. Degenerative changes of the SI joints. IMPRESSION: 1. Grade 1 anterolisthesis of L4 on L5. Otherwise normal alignment. No fractures 2. Lumbar spondylosis 3. At L1-2, right paracentral disc protrusion. Mild narrowing of the spinal canal and bilateral neural foramina 4. At L2-3, mild narrowing of the spinal canal 5. At L3-4, mild narrowing of left neural foramen 6. At L4-5, lbqz-kk-vohlykaw narrowing of the spinal canal. Moderate narrowing of the bilateral neural foramina 7. At L5-S1, left subarticular recess narrowing. Potential impingement of the traversing left S1 nerve root Dictated by Quentin Ash MD @ 07/31/2024 9:18:13 AM (Electronically Signed)
== END 2024-07-28 15:47 | disposition home or self-care (01) ==
LOC: MRI 15:46
PROVIDERS: PCP Family Medicine; Visit Provider Physician Assistant
DX: M47.896 Other spondylosis, lumbar region (principal); M51.26 Other intervertebral disc displacement, lumbar region; M51.27 Other intervertebral disc displacement, lumbosacral region; M54.16 Radiculopathy, lumbar region; M43.16 Spondylolisthesis, lumbar region
CPT/HCPCS: 72148

== ENCOUNTER 2024-08-11 07:46 | Outpatient (CLI) | payer MEDICARE, BC, SELFPAY ==
--- OUTSIDE RECORDS SUMMARY | 2024-08-11 08:28 | XMS_ITS | Clinical Summary ---
Author Organization [facility] Address [address] [place] [address] Care Team Providers Care Leather Stretcher Name Role Phone Burak Hatch MD Primary Care Provider + Allergies Active Allergy Reactions Criticality Noted Date Comments Homeopathic Products 01/25/2009 Medications multivitamin (MVI) tablet take 1 tablet by oral route once daily with food 0 9 Active omega-3 fatty acids-vitamin E (FISH OIL) 1,000 mg Cap take one tab BID 0 9 Active aspirin enteric coated 81 mg tablet take 1 tablet (81 mg) by oral route once daily 0 9 Active magnesium citrate 100 mg tab Take by mouth 2 times daily. 0 3 Active tadalafil (CIALIS) 20 mg tabletIndications:E rectile dysfunction, unspecified erectile dysfunction type Take 1 tablet by mouth once daily if needed for Erectile Dysfunction. Take 30 minutes before sexual activity. 6 tablet 12 7 Active cyanocobalamin (VITAMIN B-12) 1,000 mcg tabletIndications:R outine general medical examination at a health care facility Take 1 tablet by mouth once daily. 0 8 Active Cholecalciferol, Vitamin D3, (VITAMIN D-3) 2,000 unit tabletIndications:R outine general medical examination at a health care facility Take 1 tablet by mouth once daily. 0 8 Active simvastatin (ZOCOR) 20 mg tabletIndications:H yperlipidemia, unspecified hyperlipidemia type Take 1 tablet by mouth once daily. 90 tablet 3 8 Active magnesium sulfate 100 mg cap Take 1 tablet by mouth. Active multivitamin therapeutic (THERAGRAN; ONCOVITE) tablet Take 1 tablet by mouth. Active [id number]-fis h oil 300-1,000 mg capsule Take 1 g by mouth. Active potassium chloride (KLOR-CON 10; K-TAB) 10 mEq Controlled-Release tablet Take by mouth. Active aspirin (ECOTRIN) 81 mg enteric coated tablet Take 81 mg by mouth. Active naproxen (NAPROSYN) 500 mg tabletIndications:A rthralgia, unspecified joint TAKE 1 TABLET BY MOUTH TWICE A DAY WITH MEALS. 180 tablet 9 Active simvastatin (ZOCOR) 20 mg tabletIndications:H yperlipidemia, unspecified hyperlipidemia type TAKE ONE TABLET BY MOUTH EVERY DAY 30 tablet 9 Active atorvastatin 10 mg tablet Take 10 mg by mouth at bedtime. 4 Active gabapentin 300 mg capsuleIndications: Lumbar radiculopathy Take 1 Capsule (300 mg) by mouth at bedtime. 30 Capsule 3 5 Active Active Problems Problem Noted Date Diagnosed Date Major depression, single episode 01/27/2010 Hyperlipidemia 01/27/2009 Erectile dysfunction 01/27/2009 Cardiogenic Syncope/Hypervagatonia 05/23/2006 Overview (05/23/2006): EEG negative, Echo - normal, Holter - normal GERD 05/23/2006 Rosacea 05/23/2006 Colon polyps Overview (01/27/2009): repeat scope 2011 Encounters Date Type Department Care Team Description 08/06/2024 Travel 08/04/2024 8:20 AM CDT Office Visit [facility] [address] [place] [address] Jackson Glover MD Musculoskeletal Problem (Left Leg Pain coming from the spine, 3 months ago, 3 weeks has gotten bad ) 08/03/2024 Travel 07/28/2024 Orders Only [facility] Scanner 1 scan: (1-Ord) [facility], MR LUMBAR SPINE WO CON, 07/28/2024 07/07/2024 Orders Only [facility] Scanner 1 scan: (1-Ord) [facility], BIOPSY BY SHAVE, RT LATERAL ZYGOMA, LT ANTERIOR LATERAL DISTAL UPPER ARM, 07/07/2024 from Last 3 Months Immunizations Immunization Administration Dates Next Due Influenza, IIV3 (Age >=3 years) 11/29/19 13,12/21/2011,12/21/2010,12/06/2009, 12/06/2008 Influenza, IIV4 11/22/2016,11/23/2015,11/22/2014 ,11/22/2013 Td (Age >=7 Years) 12/30/1999 Tdap 03/23/2017,05/09/2007 Family History Medical History Relation Name Comments Cancer Brother 2 skin Diabetes Brother 3 Heart Disease Brother 4 NE Heart Disease Brother 5 CHF Hypertension Daughter [...] 02/22/1969 Smokeless Tobacco: Never Tobacco Cessation:Counseling Given: Not Answered Alcohol Use Standard Drinks/Week Comments Yes 0.8 (1 standard drin k = 0.6 oz pure alcohol) Alcoholic Drinks/day: 1 per week PHQ-2 Answer Date Recorded PHQ-2 Score 0 04/24/2018 Sex and Gender Information Value Date Recorded Sex Assigned at Not on file Legal Sex Male 6:10 AM ASSISTANT TO THE PRESIDENT Gender Identity Not on file Sexual Orientation Not on file Occupation Industry Job Start Date Job End Date [employer] Not on file Not on file Not on file Obstetrics History Last Filed Vital Signs Vital Sign Reading Time Taken Comments Blood Pressure 145/86 08/04/2024 8:30 AM CDT Pulse 73 08/04/2024 8:30 AM CDT Temperature 37 C (98.6 F) 04/29/2018 9:51 AM ASSISTANT TO THE PRESIDENT Respiratory Rate 14 11/15/2017 9:31 AM CDT Oxygen Saturation 98% 08/04/2024 8:30 AM CDT Inhaled Oxygen Concentration - - Weight 78.9 kg (174 lb) 08/04/2024 8:30 AM CDT Height 171 cm (5' 7.32) 11/15/2017 9:31 AM CDT Body Mass Index 26.99 11/15/2017 9:31 AM CDT Plan of Treatment Upcoming Encounters Date Type Department Care Team (Late st Contact Info) Description 09/25/2024 1:20 PM CDT Office Visit [facility] [address] [facility] [place] [address] Jackson Glover MD [address] [facility] [place] [place] [address] Health Maintenance Due Date Last Done Comments Pneumococcal series for age 50+ (1 of 1 - PCV) 2006 Zoster (shingles) series for age 50+ (1 of 2) 2006 Colonoscopy through age 75 03/08/201803/08, 03/08/2013, 11/22/2006, Additional history exists BMI (ht and wt on same day) for age 18+ 11/15/2018 11/15/2017, 03/23/2017, 03/16/2016, Additional history exists Depression screening for age 12+ 11/18/2018 11/18/2017, 11/16/2017, 11/15/2017, Additional history exists AAA screening age 65-74 2021 04/06/2014 Medicare Wellness for age 65+ 2021 Lipids for age 45-75 03/23/2022 03/23/2017, 03/16/2016, 03/11/2015, Additional history exists COVID-19 vaccine series ( - 2023- season) 2023 02/24/2021, 06/06/2020, 05/09/2020 Influenza Vaccine (Season Ended) 2024 11/22/2016, 11/23/2015, 11/22/2014, Additional history exists Tetanus booster 03/23/2027 03/23/2017, 04/22, 12/30/1999 RSV vaccine for adults or (1 - 1-dose 75+ series) 09/17/2031 Hepatitis C screening for age 18-79 Completed 03/23/2017 Tdap Completed 03/23/2017, 05/09/2007 Hepatitis B series for 19+ Aged Out N o longer eligible based on patient's age to complete this topic Medical Devices Implanted Type Area Main Line Station Engineer Device Identifier Shelf Expiration Date Model / Serial / Lot [id number] - [id number] Implanted:Qty: 1 on 05/02/2014 by Jamarcus La MD at [facility] Right: Shoulder [employer] 01/23/2016 [id number] -[id number] / / [id number] - [id number] Implanted:Qty: 4 on 05/02/2014 by Jamarcus La MD at [facility] Right: Shoulder [employer] 12/24/2015 [id number] / / [id number] Procedures Procedure Name Priority Date/Time Associated Diagnosis Comments AMB EPIDURAL STEROID INJECTION Routine 08/11/2024 7:57 AM CDT Lumbar disc herniation Lumbar radiculopathy Status post lumbar spine decompression SCAN-MRI INTERPRETATION 07/28/2024 12:00 AM CDT SCAN-OPERATIVE/PROCEDU RE REPORT 07/07/2024 12:00 AM CDT ANTI HCV Routine 03/23/2017 9:35 AM ASSISTANT TO THE PRESIDENT Need for hepatitis C screening test LIPID PANEL W REFLEX MEASURED LDL Routine 03/23/2017 9:35 AM ASSISTANT TO THE PRESIDENT Hyperlipidemia, unspecified hyperlipidemia type CT ABDOMEN PELVIS W STAT 04/06/2014 4 :28 PM ASSISTANT TO THE PRESIDENT COLONOSCOPY SCREENING Routine 03/08/2013 from Last 3 Months or Most Recently Relevant to Health Maintenance Results * SCAN-MRI INTERPRETATION (07/28/2024 12:00 AM CDT) Anatomical Region Laterality Modality Other us Scanner OTHER Final Result * SCAN-OPERATIVE/PROCEDURE REPORT (07/07/2024 12:00 AM CDT) us Scanner OTHER Final Result * LIPID PANEL W REFLEX MEASURED LDL (03/23/2017 9:35 AM ASSISTANT TO THE PRESIDENT) CHOLESTEROL,TOTAL 177 100 - 199 mg/dL 03/23/2017 10:20 AM ASSISTANT TO THE PRESIDENT [facility] TRIGLYCERIDES 72 <150 mg/dL 03/23/2017 10:20 AM ASSISTANT TO THE PRESIDENT [facility] HDL CHOLESTEROL 52 >40 mg/dL 8 10:20 AM ASSISTANT TO THE PRESIDENT [facility] NON-HDL CHOLESTEROL 125 <145 mg/dl 03/23/2017 10:20 AM ASSISTANT TO THE PRESIDENT [facility] CHOL/HDL RATIO 3.40 <4.50 03/23/2017 10:20 AM ASSISTANT TO THE PRESIDENT [facility] LDL CHOLESTEROL 111 <=130 mg/dL 03/23/2017 10:20 AM ASSISTANT TO THE PRESIDENT [facility] PROVIDER ORDERED STATUS RANDOM 03/23/2017 10:20 AM ASSISTANT TO THE PRESIDENT [facility] Blood BLOOD SPECIMEN / Unknown Venipuncture / Unknown 03/23/2017 9:35 AM ASSISTANT TO THE PRESIDENT 03/23/2017 9:38 AM ASSISTANT TO THE PRESIDENT us Burak Hatch MD CHEMISTRY Final Re sult [facility] [address] [place] [address] * ANTI HCV (03/23/2017 9:35 AM ASSISTANT TO THE PRESIDENT) HEPATITIS C ANTIBODY Non-Reacti ve Non-Reacti ve 03/23/2017 4:40 PM ASSISTANT TO THE PRESIDENT [facility] Blood BLOOD SPECIMEN / Unknown Venipuncture / Unknown 03/23/2017 9:35 AM ASSISTANT TO THE PRESIDENT 03/23/2017 9:38 AM ASSISTANT TO THE PRESIDENT Narrative [facility] - 03/23/2017 4:40 PM ASSISTANT TO THE PRESIDENT Antibodies to HCV not detected; does not exclude the possibility of exposure to HCV. us Burak Hatch MD SEND OUTS Final Re sult [facility] [address] [place] [address], [place] * CT ABDOMEN PELVIS W (04/06/2014 4:28 PM ASSISTANT TO THE PRESIDENT) Anatomical Region Laterality Modality Abdomen, Pelvis, AORTA, LIVER, SPLEEN Computed Tomography 04/06/2014 4:56 PM ASSISTANT TO THE PRESIDENT Narrative 04/06/2014 4:56 PM ASSISTANT TO THE PRESIDENT INDICATION: Abdomen pain. TECHNIQUE: CT abdomen and pelvis acquired with 100 cc Isovue 300 IV contrast. COMPARISON: None. FINDINGS: Lower chest: Single small granuloma is present in the left lower lobe. Liver: Unremarkable. Spleen: Few punctate granuloma. Pancreas: Unremarkable. Gallbladder and bile ducts: Unremarkable. Kidneys: Unremarkable. Adrenal glands: Unremarkable. GI tract: Unremarkable. Appendix is not distinctly seen. Vascular structures: Unremarkable. Lymph nodes: Unremarkable. Miscellaneous: Unremarkable. No free air or significant free fluid. Pelvic Organs: Moderate prostate gland hypertrophy. Bones: Unremarkable for age. IMPRESSION: No acute or significant findings to explain abdominal pain. Dictated by Daniel Rivera MD @ Apr 06 2014 4:45PM Signed by Dr. Daniel Rivera @ Apr 06 2014 4:56PM Procedure Note Daniel Rivera MD - 04/06/2014 INDICATION: Abdomen pain. TECHNIQUE: CT abdomen and pelvis acquired with 100 cc Isovue 300 IV contrast. COMPARISON: None. FINDINGS: Lower chest: Single small granuloma is present in the left lower lobe. Liver: Unremarkable. Spleen: Few punctate granuloma. Pancreas: Unremarkable. Gallbladder and bile ducts: Unremarkable. Kidneys: Unremarkable. Adrenal glands: Unremarkable. GI tract: Unremarkable. Appendix is not distinctly seen. Vascular structures: Unremarkable. Lymph nodes: Unremarkable. Miscellaneous: Unremarkable. No free air or significant free fluid. Pelvic Organs: Moderate prostate gland hypertrophy. Bones: Unremarkable for age. IMPRESSION: No acute or significant findings to explain abdominal pain. Dictated by Daniel Rivera MD @ Apr 06 2014 4:45PM Signed by Dr. Daniel Rivera @ Apr 06 2014 4:56PM us Jesi Valente MD CT Final Result * COLONOSCOPY SCREENING (03/08/2013) us Jayme Contreras MD GI PROCEDURE ORD Final Re sult from Last 3 Months or Most Recently Relevant to Health Maintenance Insurance [facility] ONLY Advance Directives Documents on File Type Date Recorded Patient Bearingizer Expl anation Healthcare Directive 08/16/2008 12:00 AM A DVANCE DIRECTIVE Healthcare Directive 07/30/2008 HEALTH ARE DIRECTIVE, [facility], [facility], 08/06/2008 * Full Code (Latest Code Status on File) Date Activated Date Inactivated Comments 05/02/2014 2:15 PM 05/02/2014 7:17 PM * Full Code Date Activated Date Inactivated Comments 05/02/2014 9:02 AM 05/02/2014 2:15 PM * Full Code Date Activated Date Inactivated Comments 02/06/2005 9:44 AM 02/07/2005 3:54 PM Care Teams Leather Stretcher Relationship Specialty Start Date End Date Burak Hatch MD [address] [place] [address] [facility] - General 05/23/04
--- OUTSIDE RECORDS SUMMARY | 2024-08-11 08:28 | XMS_ITS | Patient Health Record ---
Author Organization [facility] Address [address] [place] [address] [address] [facility] [place] [address] Care Team Providers Care Sap Security Consultant Name Role Phone Emerson Rodriguez Primary Care Provider Jose Luis VALDEZ, PhD, Nikunj Unavailable Unavai lable Allergies Allergen (clinical drug ingredient) Drug/Non Drug Allergy documented on EMR Reaction Allergy Type Onset Date Status Hay fever (uncoded) Unknown Allergy Active Reason For Referral No Information Medications Medication SIG (Take, Route, Frequency, Duration) Notes Start Date End Date Status Omeprazole 20 MG 1 capsule Orally Onc e a day 02/08/2024 Active Naproxen 500 MG 1 tablet Orally twic e a day 02/08/2024 Active Atorvastatin Calcium 10 MG 1 tablet Oral ly every evening 02/08/2024 Active Problems Problem Type SNOMED Code ICD Code Onset Dates Problem Status W/U Status Risk Notes Problem Cervical radiculopathy (81230385) Radiculopathy , cervical region (M54.12) Active confirmed Encounters Encounter Location Date Provider Diagnosis [facility] [address] [place] [address] [address] [place] [address] 01/31/2024 Emerson Rodriguez [facility] [address] [place] [address] [address] [place] [address] 02/07/2024 Emerson Rodriguez [address] [facility] [address] [facility] [address] [place] [address] 02/08/2024 Emerson Rodriguez Radiculopathy, cervical region M54.12 Assessments Encounter Date Diagnosis (ICD Code) Assessment Notes Treatment Notes Treatment Clinical Notes Section Notes 02/08/2024 Radiculopathy, cervical region (ICD-10 - M54.12) Plan Of Treatment No Information Insurance Providers Payer Name Payer Address Payer Phone Subscriber Number Group Number Insured Name Patient Relationship to Insured Coverage Start Date Coverage End Date [facility] Advantage [address] [address] [place] [address] [id number] Salomon Alvarez Self - patient is the insured Medicare Part B [employer] [address] [place] [address] [phone] [id number] Salomon Alvarez Self - patient is the insured Medical (General) History Medical History History ICD Code Acid reflux headaches Hernia Hyperlipidemia Vision loss Surgical History Surgery Date(Month/Year) appendectomy Right shoulder
--- OUTSIDE RECORDS SUMMARY | 2024-08-12 00:19 | XMS_ITS | Clinical Summary ---
Author Organization [employer] [facility] Address [address] [place] [id number] Care Team Providers Care Country Printer Name Role Phone Burak Hatch MD Primary [...] tablet Take 1 tablet by mouth. Active [id number] h oil 300-1,000 mg capsule Take 1 [...] Encounters Date Type Department Care Team Description 08/11/2024 8:20 AM CDT Office Visit [facility] [address] [place] [id number] Jackson Glover MD Procedure (Left S1 TFESI) 08/06/2024 Travel 08/04/2024 8:20 AM CDT Office Visit [facility] [address] [place] [address] Jackson Glover MD Musculoskeletal Problem (Left Leg Pain coming from the spine, 3 months ago, 3 weeks has gotten bad ) 08/03/2024 Travel 07/28/2024 Orders Only [facility] Scanner 1 scan: (1-Ord) [facility], MR LUMBAR SPINE WO CON, 07/28/2024 07/07/2024 Orders Only [facility] Scanner 1 scan: (1-Ord) [facility], [...] Diabetes Brother 3 Heart Disease Brother 4 DC Heart Disease Brother 5 CHF Hypertension Daughter [...] on file Legal Sex Male 6:10 AM 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 CLERK Gender Identity Not on file Sexual Orientation Not on file Occupation Industry Job Start Date Job End Date [employer] Not on file Not on file Not on file Obstetrics History Last Filed Vital Signs Vital Sign Reading Time Taken Comments Blood Pressure 145/86 08/04/2024 8:30 AM CDT Pulse 73 08/04/2024 8:30 AM CDT Temperature 37 C (98.6 F) 04/29/2018 9:51 AM CAR RENTAL CLERK Respiratory Rate 14 11/15/2017 9:31 AM CDT [...] Description 09/25/2024 1:20 PM CDT Office Visit [facility] [address] [place] [address] Jackson Glover MD [address] [place] [address] Health Maintenance Due Date Last Done Comments [...] Additional history exists COVID-19 vaccine series ( season) 2023 02/24/2021, 06/06/2020, 05/09/2020 Influenza Vaccine [...] this topic Medical Devices Implanted Type Area Map Mounter Device Identifier Shelf Expiration Date Model / Serial / Lot [id number] - [id number] Implanted:Qty: 1 on 05/02/2014 by Jamarcus La MD at [facility] Right: Shoulder [employer] 01/23/2016 [id number] / / [id number] [id number] - [id number] Implanted:Qty: 4 on 05/02/2014 by Jamarcus La MD at [facility] Right: Shoulder [employer] 12/24/2015 [id number] / / [id number] Procedures Procedure Name Priority Date/Time Associated Diagnosis Comments AMB EPIDURAL STEROID INJECTION Routine 08/11/2024 7:57 AM CDT Lumbar disc herniation Lumbar radiculopathy Status post lumbar spine surgery for decompression of spinal cord SCAN-MRI INTERPRETATION 07/28/2024 12:00 AM CDT SCAN-OPERATIVE/PROCEDU RE REPORT 07/07/2024 12:00 AM CDT ANTI HCV Routine 03/23/2017 9:35 AM CAR RENTAL CLERK Need for hepatitis C screening test LIPID PANEL W REFLEX MEASURED LDL Routine 03/23/2017 9:35 AM CAR RENTAL CLERK Hyperlipidemia, unspecified hyperlipidemia type CT ABDOMEN PELVIS W STAT 04/06/2014 4 :28 PM CAR RENTAL CLERK COLONOSCOPY SCREENING Routine 03/08/2013 from Last 3 Months or Most Recently Relevant to Health Maintenance Results * SCAN-MRI INTERPRETATION (07/28/2024 12:00 AM CDT) Anatomical Region Laterality Modality Other us Scanner OTHER Final Result * SCAN-OPERATIVE/PROCEDURE REPORT (07/07/2024 12:00 AM CDT) us Scanner OTHER Final Result * LIPID PANEL W REFLEX MEASURED LDL (03/23/2017 9:35 AM CAR RENTAL CLERK) CHOLESTEROL,TOTAL 177 100 - 199 mg/dL 03/23/2017 10:20 AM CAR RENTAL CLERK [facility] TRIGLYCERIDES 72 <150 mg/dL 03/23/2017 10:20 AM CAR RENTAL CLERK [facility] HDL CHOLESTEROL 52 >40 mg/dL 8 10:20 AM CAR RENTAL CLERK [facility] NON-HDL CHOLESTEROL 125 <145 mg/dl 03/23/2017 10:20 AM CAR RENTAL CLERK [facility] CHOL/HDL RATIO 3.40 <4.50 03/23/2017 10:20 AM CAR RENTAL CLERK [facility] LDL CHOLESTEROL 111 <=130 mg/dL 03/23/2017 10:20 AM CAR RENTAL CLERK [facility] PROVIDER ORDERED STATUS RANDOM 03/23/2017 10:20 AM CAR RENTAL CLERK [facility] Blood BLOOD SPECIMEN / Unknown Venipuncture / Unknown 03/23/2017 9:35 AM CAR RENTAL CLERK 03/23/2017 9:38 AM CAR RENTAL CLERK us Burak Hatch MD CHEMISTRY Final Re sult Performing Organization Address City/[facility] Co de Phone Number [facility] [address] [place] [address] * ANTI HCV (03/23/2017 9:35 AM CAR RENTAL CLERK) HEPATITIS C ANTIBODY Non-Reacti ve Non-Reacti ve 03/23/2017 4:40 PM CAR RENTAL CLERK [facility] Blood BLOOD SPECIMEN / Unknown Venipuncture / Unknown 03/23/2017 9:35 AM CAR RENTAL CLERK 03/23/2017 9:38 AM CAR RENTAL CLERK Narrative [facility] - 03/23/2017 4:40 PM CAR RENTAL CLERK Antibodies to HCV not detected; does not exclude the possibility of exposure to HCV. us Burak Hatch MD SEND OUTS Final Re sult [facility] [address] [place] [address], [place] * CT ABDOMEN PELVIS W (04/06/2014 4:28 PM CAR RENTAL CLERK) Anatomical Region Laterality Modality Abdomen, Pelvis, AORTA, LIVER, SPLEEN Computed Tomography 04/06/2014 4:56 PM CAR RENTAL CLERK Narrative 04/06/2014 4:56 PM CAR RENTAL CLERK INDICATION: Abdomen pain. TECHNIQUE: CT abdomen and [...] CT Final Result * COLONOSCOPY SCREENING (03/08/2013) Jayme Contreras MD GI PROCEDURE ORD Final Re sult from Last 3 Months or Most Recently Relevant to Health Maintenance Insurance [facility] BLUE [place] BL[place] MR [place] ONLY Advance Directives Documents on File Type Date Recorded Patient Orthopedic Mechanic Expl anation Healthcare Directive 08/16/2008 12:00 AM A DVANCE DIRECTIVE Healthcare Directive 07/30/2008 HEALTH ARE DIRECTIVE, [place] [facility] 08/06[place] * Full Code (Latest Code Status on File) Date Activated Date Inactivated Comments 05/02/2014 2:15 PM 05/02/2014 7:17 PM * Full Code Date Activated Date Inactivated Comments 05/02/2014 9:02 AM 05/02/2014 2:15 PM * Full Code Date Activated Date Inactivated Comments 02/06/2005 9:44 AM 02/07/2005 3:54 PM Care Teams Country Printer Relationship Specialty Start Date End Date Burak Hatch MD [address] [place] [id number] PCP - General 05/23/04
== END 2024-08-11 07:47 | disposition home or self-care (01) ==
LOC: INJ CL 07:47
PROVIDERS: PCP Family Medicine; Visit Provider Family Medicine
DX: M54.16 Radiculopathy, lumbar region (principal); M51.26 Other intervertebral disc displacement, lumbar region
CPT/HCPCS: 64483; J1100; Q9966

== ENCOUNTER 2024-11-22 09:07 | Outpatient (CLI) | payer MEDICARE, BC, SELFPAY | END 2024-11-22 09:08 | disposition home or self-care (01) | PROVIDERS: PCP Family Medicine; Visit Provider Family Medicine | DX: E78.2 Mixed hyperlipidemia (principal); N40.0 Benign prostatic hyperplasia without lower urinary tract symptoms; Z12.5 Encounter for screening for malignant neoplasm of prostate | CPT/HCPCS: 80048; 80061; 84460; 85025; G0103 ==